=== PATIENT | male | born 1940 | race Caucasian/White ===

== ENCOUNTER 2018-08-17 07:10 | Inpatient (IN) | payer BC, MEDICARE ==
[~2018-08-17] VITALS: Ht 180.3 cm; Wt 94.8 kg
[~2018-08-17 07:10] MED LIST: ALLO100T PO; ALLO300T PO; ASPI-482 PO; CLON0.1T PO; ESCITALOPRAM OX10 MG PO; EZET10TA18 PO; FLUT1DIS3 IH; GLIM4TAB2 PO; GLYB2.5T2 PO; GLYB5TAB3 PO; HYDR-2758 PO; LANS15CA78 PO; LINA5TAB4 PO; LISI-334 PO; LISI10TA2 PO; LISI1TAB7 PO; METF500T16 PO; METO-239 PO; METO100T7 PO; METO200T46 PO; PIOG30TA41 PO; POLY17PO29 PO; RANI150T21 PO; SIMV10TA3 PO; SIMV20TA3 PO
--- NOTE | 2018-08-17 07:43 | EKG ---
[facility] [address] [place] [id number] Test Date: 2018-08-17 Test Time: 07:18:41 Pat Name: BRANDYN MORENO Department: Room: Gender: M Manager Medicare: : 1940 Requested By: MARCOS CHAVEZ Order Number: [id number] Reading MD: Kyle Gonzalez Measurements Intervals [place] Rate: 85 P: -15 FL: 158 QRS: 64 QRSD: 82 T: 67 QT: 376 QTc: 453 Interpretive Statements SINUS RHYTHM ATRIAL PREMATURE COMPLEX(ES) QRS(T) CONTOUR ABNORMALITY CONSIDER ANTEROLATERAL MYOCARDIAL DAMAGE POSSIBLY ABNORMAL ECG Electronically Signed On 08-17-2018 11:52:50 CDT by Kyle Gonzalez
[2018-08-17] MEDS ORDERED: ONDANSETRON PF 4 MG/2 ML VIAL. IV ONE ×2 (07:45→10:00)
[2018-08-17] MEDS ORDERED: IV NORMAL SALINE 1000ML BAG 1,000 ML IV ONE (07:45)
--- NOTE | 2018-08-17 07:58 | PHYS DOC ---
Past Medical History Past Medical History: Diabetes-Type II, High Cholesterol, Hypertension Past Surgical History: Cholecystectomy, Other Additional Past Surgical Histo: hemorrhoidectomy Additional Information: quit smoking 1997 Alcohol Use: Occasionally Additional Information: reports 1 beer daily Drug Use: Marijuana Adult General Chief Complaint Chief Complaint: ABDOMINAL PAIN HPI HPI Patient is a 78 year old male presenting with PAWEL a chief complaint nausea vomiting and diarrhea. Multiple episodes of each 10 or more he said the last couple episodes he noticed some brownish colored emesis he was worried about bleeding however the stool is also been brown there is no black stool there has been no blood by mouth or rectum no bright red blood. Patient has no fever no chest pain no shortness of breath has abdominal pain described as cramping more on the left worse with vomiting. No sick contacts he was hospitalized last month at antibiotics and elevated white count ultimately concluded to be dehydrated. No sick contacts at home with similar symptoms Y says the diarrhea is fairly chronic for him but it is worse over the last 24 hours. Review of Systems Review of Systems Constitutional: Denies fever or chills [] Eyes: Denies change in visual acuity, redness, or eye pain [] HENT: Denies nasal congestion or sore throat [] Respiratory: Denies cough or shortness of breath [] Cardiovascular: No additional information not addressed in HPI [] Musculoskeletal: Denies back pain or joint pain [] Integument: Denies rash or skin lesions [] Neurologic: Denies headache, focal weakness or sensory changes [] Endocrine: Denies polyuria or polydipsia [] All other systems were reviewed and found to be within normal limits, except as documented in this note. Current Medications Current Medications Current Medications Medications (Trade) Dose Ordered Sig/Tanya Start Time Stop Time Status Last Admin Dose Admin Ceftriaxone Sodium 50 ml @ 100 mls/hr 1X ONCE 08/17/18 08:30 08/17/18 08:59 DC 08/17/18 09:27 100 MLS/HR Metronidazole 100 ml @ 100 mls/hr 1X ONCE 08/17/18 08:30 08/17/18 09:29 DC 08/17/18 10:27 100 MLS/HR Ondansetron HCl (Zofran) 4 mg 1X ONCE 08/17/18 10:00 08/17/18 10:01 DC 08/17/18 10:27 4 MG Sodium Chloride 1,000 ml @ 1,000 mls/hr 1X ONCE 08/17/18 07:45 08/17/18 08:44 DC 08/17/18 07:46 1,000 MLS/HR Allergies Allergies Allergies Coded Allergies Type Severity Reaction Last Updated Verified morphine Adverse Reaction Intermediate 03/23/15 Yes Physical Exam Physical Exam Constitutional: Well developed, well nourished, no acute distress, non-toxic appearance. [] HENT: Normocephalic, atraumatic, bilateral external ears normal, oropharynx dry , no oral exudates, nose normal. [] Eyes: PERRLA, EOMI, conjunctiva normal, no discharge. [] Neck: Normal range of motion, no tenderness, supple, no stridor. [] Cardiovascular:Heart rate regular rhythm, no murmur [] Lungs & Thorax: Bilateral breath sounds clear to auscultation [] Abdomen: Bowel sounds normal, soft, left lower quadrant without rebound tenderness, no masses, no pulsatile masses. [] Skin: Warm, dry, no erythema, no rash. [] Back: No tenderness, no CVA tenderness. [] Extremities: No tenderness, no cyanosis, no clubbing, ROM intact, no edema. [] Neurologic: Alert and oriented X 3, normal motor function, normal sensory function, no focal deficits noted. [] Psychologic: Affect normal, judgement normal, mood normal. [] Current Patient Data Vital Signs Vital Signs Date Time Temp Pulse Resp B/P (MAP) Pulse Ox O2 Delivery O2 Flow Rate FiO2 08/17/18 09:52 92 16 170/74 (106) Room Air 08/17/18 09:26 97 08/17/18 07:21 97.4 97.4 Lab Values Laboratory Tests Test 08/17/18 07:40 08/17/18 07:50 08/17/18 09:02 White Blood Count 20.3 x10^3/uL (4.0-11.0) H Red Blood Count 4.29 x10^6/uL (4.30-5.70) L Hemoglobin 14.0 g/dL (13.0-17.5) Hematocrit 43.0 % (39.0-53.0) Mean Corpuscular Volume 100 fL (79-100) Mean Corpuscular Hemoglobin 33 pg (25-35) Mean Corpuscular Hemoglobin Concent 33 g/dL (31-37) Red Cell Distribution Width 14.5 % (11.5-14.5) Platelet Count 178 x10^3/uL (140-400) Neutrophils (%) (Auto) 95 % (31-73) H Lymphocytes (%) (Auto) 3 % (24-48) L Monocytes (%) (Auto) 2 % (0-9) Eosinophils (%) (Auto) 0 % (0-3) Basophils (%) (Auto) 0 % (0-3) Neutrophils # (Auto) 19.1 x10^3uL (1.8-7.7) H Lymphocytes # (Auto) 0.6 x10^3/uL (1.0-4.8) L Monocytes # (Auto) 0.5 x10^3/uL (0.0-1.1) Eosinophils # (Auto) 0.0 x10^3/uL (0.0-0.7) Basophils # (Auto) 0.0 x10^3/uL (0.0-0.2) Segmented Neutrophils % 87 % (35-66) H Band Neutrophils % 5 % (0-9) Lymphocytes % 4 % (24-48) L Atypical Lymphocytes % (Manual) 1 % (0-0) H Monocytes % 2 % (0-10) Metamyelocytes % 1 % (0-0) H Platelet Estimate Adequate (ADEQUATE) Sodium Level 137 mmol/L (136-145) Potassium Level 5.2 mmol/L (3.5-5.1) H Chloride Level 101 mmol/L (98-107) Carbon Dioxide Level 19 mmol/L (21-32) L Anion Gap 17 (6-14) H Blood Urea Nitrogen 54 mg/dL (8-26) H Creatinine 2.5 mg/dL (0.7-1.3) H Estimated GFR (Cockcroft-Gault) 25.1 BUN/Creatinine Ratio 22 (6-20) H Glucose Level 370 mg/dL (70-99) H Calcium Level 10.3 mg/dL (8.5-10.1) H Total Bilirubin 0.6 mg/dL (0.2-1.0) Aspartate Amino Transferase (AST) 27 U/L (15-37) Alanine Aminotransferase (ALT) 44 U/L (16-63) Alkaline Phosphatase 141 U/L (46-116) H Troponin I Quantitative < 0.017 ng/mL (0.000-0.055) Total Protein 7.7 g/dL (6.4-8.2) Albumin 4.2 g/dL (3.4-5.0) Albumin/Globulin Ratio 1.2 (1.0-1.7) Lipase 148 U/L (73-393) Stool Occult Blood Negative (NEG) Urine Collection Type Void Urine Color Yellow Urine Clarity Turbid Urine pH 5.0 Urine Specific [place] 1.025 Urine Protein 30 mg/dL (NEG-TRACE) Urine Glucose (UA) >=1000 mg/dL (NEG) Urine Ketones (Stick) Trace mg/dL (NEG) Urine Blood Negative (NEG) Urine Nitrite Negative (NEG) Urine Bilirubin Negative (NEG) Urine Urobilinogen Dipstick 0.2 mg/dL (0.2 mg/dL) Urine Leukocyte Esterase Trace (NEG) Urine RBC 0 /HPF (0-2) Urine WBC 5-10 /HPF (0-4) Urine Squamous Epithelial Cells Occ /LPF Urine Renal Epithelial Cells Occ /LPF Urine Bacteria 0 /HPF (0-FEW) Urine Hyaline Casts Few /HPF Urine Mucus Slight /LPF Laboratory Tests 08/17/18 07:40 Laboratory Tests 08/17/18 07:40 EKG EKG []EKG shows a sinus rhythm rate of [address] changes noted laterally no definite ischemia no STEMI QTC 453 interpreted by me the timing encounter Radiology/Procedures Radiology/Procedures [] Impressions: 1. Multiple sigmoid colon diverticulosis. 2. Nonspecific mild fluid distended small bowel loops. 3. Mild fat stranding identified about the bilateral kidneys, chronic probably medical renal disease. 4. Mild prominent bilateral adrenal glands similar to prior exam. Electronically signed by: Giuseppe Thurman MD (08/17/2018 10:28 AM) [id number] Course & Med Decision Making Course & Med Decision Making Pertinent Labs and Imaging studies reviewed. (See chart for details) []78-year-old male history of diabetes hypertension high cholesterol recent admission for [place] I with dehydration lactic acidosis thought due to metformin who is presenting with nausea vomiting and diarrhea for the last 1 day. Patient is overall well-appearing he does have mild to moderate abdominal tenderness. Plan to do a CT scan to rule out diverticulitis we'll hydrate the patient check lab work, try to get stool sample to rule out C. difficile given the recent hospitalization. noted wbc, covered ctx flagyl presumptively waiting for cdiff. noted renal failure, and mild hyperk treated with iv fluids. will admit ct scan neg acute, cdiff pending as well. h/h and hemoccult not c/w gi bleed. d/w riffel admit for renal failure, waiting for cdiff. Dragon Disclaimer Dragon Disclaimer This electronic medical record was generated, in whole or in part, using a voice recognition dictation system. Departure Departure Impression: Primary Impression: Nausea vomiting and diarrhea Additional Impressions: Renal failure (ARF), acute on chronic Hyperkalemia Disposition: ADMITTED INPATIENT Admitting Physician: Other Condition: STABLE Referrals: WAYNE FISH Jr, MD (PCP) Problem Qualifiers MARCOS CHAVEZ MD Aug 17, 2018 07:58
[2018-08-17 08:09] LABS: CALCIUM 10.3 mg/dL (8.5-10.1); CREATININE 2.5 mg/dL (0.7-1.3); GFR 25.1; POTASSIUM 5.2 mmol/L (3.5-5.1)
[2018-08-17 08:16] LABS: ALBUMIN 4.2 g/dL (3.4-5.0); ALBUMIN/GLOBULIN RATIO 1.2 (1.0-1.7); TOTAL BILIRUBIN 0.6 mg/dL (0.2-1.0); TOTAL PROTEIN 7.7 g/dL (6.4-8.2)
[2018-08-17 08:17] LABS: BASO % 0 % (0-3); EOS % 0 % (0-3); LYMPH # 0.6 x10^3/uL (1.0-4.8); LYMPH % 3 % (24-48); MEAN CORPUSCULAR HEMOGLOBIN 33 pg (25-35); MEAN CORPUSCULAR HGB CONC 33 g/dL (31-37); MEAN CORPUSCULAR VOLUME 100 fL (79-100); MONO # 0.5 x10^3/uL (0.0-1.1); MONO % 2 % (0-9); NEUT # 19.1 x10^3uL (1.8-7.7); NEUT % 95 % (31-73); PLATELET COUNT 178 x10^3/uL (140-400); RED BLOOD COUNT 4.29 x10^6/uL (4.30-5.70); RED CELL DISTRIBUTION WIDTH 14.5 % (11.5-14.5); WHITE BLOOD COUNT 20.3 x10^3/uL (4.0-11.0)
[2018-08-17 08:31] LABS: FECAL OB PT NEGATIVE (NEG)
[2018-08-17 09:19] LABS: BILIRUBIN,URINE NEGATIVE (NEG); CLARITY,URINE TURBID; COLOR,URINE YELLOW; NITRITE,URINE NEGATIVE (NEG); PROTEIN,URINE 30 mg/dL (NEG-TRACE); UROBILINOGEN,URINE 0.2 mg/dL (0.2 mg/dL)
[2018-08-17 09:27] LABS: HYALINE CASTS, URINE FEW /HPF; SQUAMOUS EPITHELIAL CELL,UR OCC /LPF
[2018-08-17 09:29] LABS: RBC,URINE 0 /HPF (0-2)
[2018-08-17 09:30] LABS: BACTERIA,URINE 0 /HPF (0-FEW)
--- NOTE | 2018-08-17 10:31 | RAD ---
Examination: CT abdomen pelvis without contrast HISTORY: History of left lower quadrant abdominal pain, diverticulitis, diarrhea COMPARISON: 02/16/2015 TECHNIQUE: Axial CT images of the abdomen pelvis were performed without contrast. Coronal and sagittal reformats are performed Exposure: One or more of the following individualized dose reduction techniques were utilized for this examination: 1. Automated exposure control 2. Adjustment of the mA and/or kV according to patient size 3. Use of iterative reconstruction technique FINDINGS: Multiple calcified granulomas identified in the bibasilar lungs. No evidence of free air identified in the abdomen. The visualized noncontrasted liver, pancreas grossly appears unremarkable. Calcified granulomas identified in the spleen. Minimal prominent appearing adrenal glands are unchanged. The stomach is mildly distended with fluid. Mildly fluid distended small bowel loops identified in the abdomen. The appendix is normal. Feces and gas noted in the colon. Multiple sigmoid colon diverticulosis. The urinary bladder is mildly distended. No evidence of intrarenal collecting system calculi or hydronephrosis. Mild fat stranding identified about the bilateral kidneys. There is thinning of bilateral renal cortices. Moderate to severe aortic atherosclerosis. IMPRESSION: 1. Multiple sigmoid colon diverticulosis. 2. Nonspecific mild fluid distended small bowel loops. 3. Mild fat stranding identified about the bilateral kidneys, chronic probably medical renal disease. 4. Mild prominent bilateral adrenal glands similar to prior exam. Electronically signed by: Giuseppe Thurman MD (08/17/2018 10:28 AM) [id number]
--- NOTE | 2018-08-17 10:35 | RAD ---
EXAM: Chest, single view. HISTORY: Cough and fever. COMPARISON: 07/08/2018 FINDINGS: A frontal view of the chest obtained. There is no infiltrate, pleural effusion or pneumothorax. There is a stable prominent cardiac silhouette. There is healed granulomatous disease. IMPRESSION: No acute pulmonary finding. Electronically signed by: Tarsha Eisenberg MD (08/17/2018 10:31 AM) [place] [id number]
[2018-08-17 10:52] LABS: % ATYL 1 % (0-0); % BANDS 5 % (0-9); % LYMPHS 4 % (24-48); % METAS 1 % (0-0); % MONOS 2 % (0-10); % SEGS 87 % (35-66); PLT ESTIMATE ADEQUATE (ADEQUATE)
[2018-08-17] MEDS: IV NORMAL SALINE 1000ML BAG 1,000 ML IV SCH ×2 (11:30→20:39)
[2018-08-17] MEDS ORDERED: ALLO100T PO (13:45)
[2018-08-17] MEDS ORDERED: METF500T16 PO (13:45)
[2018-08-17] MEDS ORDERED: LISI1TAB7 PO (13:45)
[2018-08-17] MEDS ORDERED: PIOG30TA41 PO (13:45)
[2018-08-17] MEDS ORDERED: LISI-334 PO (13:45)
[2018-08-17] MEDS ORDERED: GLIM1TAB2 PO (13:45)
[2018-08-17] MEDS ORDERED: GLYB5TAB3 PO (13:46)
[2018-08-17 14:01] VITALS: BP 161/80
--- NOTE | 2018-08-17 14:57 | PDOC1 ---
History and Physical Date of Admission Date of Admission DATE: 08/17/18 TIME: 14:57 Identification/Chief Complaint Chief Complaint Intractable nausea and vomiting Diarrhea ARF Source Source: Caregiver (Daughter), Chart review, Patient History of Present Illness History of Present Illness Patient is a 78 year old male w/ PMHx DM who is p/w nausea vomiting and diarrhea. Multiple episodes of each 10 or more he said the last couple episodes he noticed some brownish colored emesis he was worried about bleeding however the stool is also been brown there is no black stool there has been no blood by mouth or rectum no bright red blood. Patient has no fever no chest pain no shortness of breath has abdominal pain described as cramping more on the left worse with vomiting. No sick contacts he was hospitalized last month at antibiotics and elevated white count ultimately concluded to be dehydrated and should stop taking metformin. He has been taking his metformin at home. Noted in ED with WBC of 20K, had CT abdomen that was non-specific showing fluid in the bowels, no apparent inflammation. K was 5.2, given IVF for this and Cr up to 2.5. After nausea treatment he is asking for a diet. Past Medical History Cardiovascular: HTN, Hyperlipidemia Pulmonary: Asthma CENTRAL NERVOUS SYSTEM: TIA GI: Diverticulosis Heme/Onc: No pertinent hx Hepatobiliary: No pertinent hx Psych: No pertinent hx Musculoskeletal: Osteoarthritis Rheumatologic: Gout Infectious disease: No pertinent hx Renal/: No pertinent hx Endocrine: Diabetes Past Surgical History Past Surgical History: Cholecystectomy, Cataract Removal, Other Family History Family History: Diabetes, Hypertension Social History ALCOHOL: none Drugs: None Current Problem List Problem List Problems Medical Problems: (1) Nausea vomiting and diarrhea Status: Acute (2) Renal failure (ARF), acute on chronic Status: Acute Current Medications Current Medications Current Medications Ondansetron HCl (Zofran) 4 mg 1X ONCE IV Last administered on 08/17/18at 07:47 ; Start 08/17/18 at 07:45; Stop 08/17/18 at 07:46; Status DC Sodium Chloride 1,000 ml @ 1,000 mls/hr 1X ONCE IV Last administered on 08/17at 07:46; Start 08/17/18 at 07:45; Stop 08/17/18 at 08:44; Status DC Ceftriaxone Sodium 50 ml @ 100 mls/hr 1X ONCE IV Last administered on at 09:27; Start 08/17/18 at 08:30; Stop 08/17/18 at 08:59; Status DC Metronidazole 100 ml @ 100 mls/hr 1X ONCE IV Last administered on 08/17/18at 10:27; Start 08/17/18 at 08:30; Stop 08/17/18 at 09:29; Status DC Ondansetron HCl (Zofran) 4 mg 1X ONCE IV Last administered on 08/17/18at 10:27 ; Start 08/17/18 at 10:00; Stop 08/17/18 at 10:01; Status DC Sodium Chloride 1,000 ml @ 100 mls/hr Q10H IV Last administered on 08/17/18at 11:30; Start 08/17/18 at 10:39; Stop 08/18/18 at 10:38 Ringer's Solution 1,000 ml @ 100 mls/hr Q10H IV ; Start 08/17/18 at 14:46; Stop 08/18/18 at 00:45; Status UNV Ondansetron HCl (Zofran) 4 mg PRN Q6HRS PRN IV NAUSEA/VOMITING; Start at 15:00; Status UNV Oxycodone HCl (Roxicodone) 5 mg PRN Q3HRS PRN PO BREAKTHROUGH PAIN; Start at 15:00; Status UNV Acetaminophen (Tylenol) 650 mg PRN Q6HRS PRN PO Headaches, Temp > 101.5F; Start 08/17/18 at 15:00; Status UNV Heparin Sodium (Porcine) (Heparin Sodium) 5,000 unit Q8HRS SQ ; Start 08/17/18 at 22:00; Status UNV Insulin Glargine (Lantus) 8 units QHS SQ ; Start 08/17/18 at 21:00; Status UNV Insulin Human Lispro (HumaLOG) 0-7 UNITS TIDWMEALS SQ ; Start 08/17/18 at 17:00 ; Status UNV Dextrose (Dextrose 50%-Water Syringe) 12.5 gm PRN Q15MIN PRN IV SEE COMMENTS; Start 08/17/18 at 15:00; Status UNV Allopurinol (Zyloprim) 100 mg DAILY PO ; Start 08/18/18 at 09:00; Status UNV Non-Formulary Medication (Escitalopram Oxalate ) 1 tab DAILY PO ; Start at 09:00; Status UNV Non-Formulary Medication (Metoprolol Succinate (Metoprolol Succinate ( Xl ))) 1 tab DAILY PO ; Start 08/18/18 at 09:00; Status UNV Non-Formulary Medication (Simvastatin ) 1 tab QHS PO ; Start 08/17/18 at 21:00 ; Status UNV Active Scripts Active Reported Glyburide 5 Mg Tablet 1 Tab PO BID Metformin Hcl 500 Mg Tablet 500 Mg PO DAILY08 Allopurinol 100 Mg Tablet 1 Tab PO DAILY Lisinopril 20 Mg Tablet 1 Tab PO DAILY Lisinopril-Hctz 20-25 Mg Tab (Lisinopril/Hydrochlorothiazide) 1 Each Tablet 1 Tab PO DAILY Actos (Pioglitazone Hcl) 30 Mg Tablet 1 Tab PO DAILY Glimepiride 1 Mg Tablet 1 Tab PO DAILY Metoprolol Succinate ( Xl ) (Metoprolol Succinate) 200 Mg Tab.er.24h 1 Tab PO DAILY Escitalopram Oxalate 10 Mg Tablet 1 Tab PO DAILY Simvastatin 20 Mg Tablet 1 Tab PO QHS Allergies Allergies: Coded Allergies: morphine (Verified Adverse Reaction, Intermediate, 03/23/15) caused confusion/hallucinations after he was on it a few days ROS General: YES: Fatigue, Malaise; No: Chills, Night Sweats, Appetite, Other PSYCHOLOGICAL ROS: No: Anxiety, Behavioral Disorder, Concentration difficultie , Decreased libido, Depression, Disorientation, Hallucinations, Hostility, Irritablity, Memory difficulties, Mood Swings, Obsessive thoughts, Physical abuse, Sexual abuse, Sleep disturbances, Suicidal ideation, Other Eyes: No Blurry vision, No Decreased vision, No Double vision, No Dry eyes, No Excessive tearing, No Eye Pain, No Itchy Eyes, No Loss of vision, No Photophobia , No Scotomata, No Uses contacts, No Uses glasses, No Other HEENT: No: Heacaches, Visual Changes, Hearing change, Nasal congestion, Nasal discharge, Oral lesions, Sinus pain, Sore Throat, Epistaxis, Sneezing, Snoring, Tinnitus, Vertigo, Vocal changes, Other ALLERGY AND IMMUNOLOGY: No: Hives, Insect Bite Sensitivity, Itchy/Watery Eyes, Nasal Congestion, Post Nasal Drip, Seasonal Allergies, Other Hematological and Lymphatic: No: Bleeding Problems, Blood Clots, Blood Transfusions, Brusing, Night Sweats, Pallor, Swollen Lymph Nodes, Other ENDOCRINE: No: Breast Changes, Galactorrhea, Hair Pattern Changes, Hot Flashes , Malaise/lethargy, Mood Swings, Palpitations, Polydipsia/polyuria, Skin Changes , Temperature Intolerance, Unexpected Weight Changes, Other Breast: No New/Changing Breast Lumps, No Nipple changes, No Nipple discharge, No Other Respiratory: No: Cough, Hemoptysis, Orthopnea, Pleuritic Pain, Shortness of breath, SOB with excertion, Sputum Changes, Stridor, Tachypnea, Wheezing, Other Cardiovascular: No Chest Pain, No Palpitations, No Orthopnea, No Paroxysmal Noc. Dyspnea, No Edema, No Lt Headedness, No Other Gastrointestinal: Yes Nausea, Yes Vomiting, Yes Abdominal Pain, Yes Diarrhea Genitourinary: No Dysuria, No Frequency, No Incontinence, No Hematuria, No Retention, No Discharge, No Urgency, No Pain, No Flank Pain, No Other, No , No , No , No , No , No , No Musculoskeletal: Yes Muscular Weakness Neurological: No Behavorial Changes, No Bowel/Bladder ControlChng, No Confusion , No Dizziness, No Gait Disturbance, No Headaches, No Impaired Coord/balance, No Memory Loss, No Numbness/Tingling, No Seizures, No Speech Problems, No Tremors, No Visual Changes, No Weakness, No Other Skin: No Dry Skin, No Eczema, No Hair Changes, No Lumps, No Mole Changes, No Mottling, No Nail Changes, No Pruritus, No Rash, No Skin Lesion Changes, No Other, No Acne Physical Exam General: Alert, Oriented X3, Cooperative, No acute distress HEENT: Atraumatic, PERRLA, EOMI, Mucous membr. moist/pink Lungs: Clear to auscultation, Normal air movement Heart: S1S2, RRR, no murmurs Abdomen: Other (RUQ and LUQ tender hyperactive bowel sounds) Rectal Exam: not examined Extremities: No clubbing, No cyanosis, No edema, Normal pulses, No tenderness/ swelling Skin: No rashes, No breakdown, No significant lesion Neuro: Normal gait, Normal speech, Strength at 5/5 X4 ext, Normal tone, Sensation intact, Cranial nerves 3-12 NL, Reflexes 2+ Psych/Mental Status: Mental status NL, Mood NL Vitals Vitals Vital Signs Date Time Temp Pulse Resp B/P (MAP) Pulse Ox O2 Delivery O2 Flow Rate FiO2 08/17/18 14:01 98.3 102 22 161/80 (107) 96 Room Air 98.3 Labs Labs Laboratory Tests Test 08/17/18 07:40 08/17/18 07:50 08/17/18 09:02 White Blood Count 20.3 x10^3/uL (4.0-11.0) Red Blood Count 4.29 x10^6/uL (4.30-5.70) Hemoglobin 14.0 g/dL (13.0-17.5) Hematocrit 43.0 % (39.0-53.0) Mean Corpuscular Volume 100 fL (79-100) Mean Corpuscular Hemoglobin 33 pg (25-35) Mean Corpuscular Hemoglobin Concent 33 g/dL (31-37) Red Cell Distribution Width 14.5 % (11.5-14.5) Platelet Count 178 x10^3/uL (140-400) Neutrophils (%) (Auto) 95 % (31-73) Lymphocytes (%) (Auto) 3 % (24-48) Monocytes (%) (Auto) 2 % (0-9) Eosinophils (%) (Auto) 0 % (0-3) Basophils (%) (Auto) 0 % (0-3) Neutrophils # (Auto) 19.1 x10^3uL (1.8-7.7) Lymphocytes # (Auto) 0.6 x10^3/uL (1.0-4.8) Monocytes # (Auto) 0.5 x10^3/uL (0.0-1.1) Eosinophils # (Auto) 0.0 x10^3/uL (0.0-0.7) Basophils # (Auto) 0.0 x10^3/uL (0.0-0.2) Segmented Neutrophils % 87 % (35-66) Band Neutrophils % 5 % (0-9) Lymphocytes % 4 % (24-48) Atypical Lymphocytes % (Manual) 1 % (0-0) Monocytes % 2 % (0-10) Metamyelocytes % 1 % (0-0) Platelet Estimate Adequate (ADEQUATE) Sodium Level 137 mmol/L (136-145) Potassium Level 5.2 mmol/L (3.5-5.1) Chloride Level 101 mmol/L (98-107) Carbon Dioxide Level 19 mmol/L (21-32) Anion Gap 17 (6-14) Blood Urea Nitrogen 54 mg/dL (8-26) Creatinine 2.5 mg/dL (0.7-1.3) Estimated GFR (Cockcroft-Gault) 25.1 BUN/Creatinine Ratio 22 (6-20) Glucose Level 370 mg/dL (70-99) Calcium Level 10.3 mg/dL (8.5-10.1) Total Bilirubin 0.6 mg/dL (0.2-1.0) Aspartate Amino Transf (AST/SGOT) 27 U/L (15-37) Alanine Aminotransferase (ALT/SGPT) 44 U/L (16-63) Alkaline Phosphatase 141 U/L (46-116) Troponin I Quantitative < 0.017 ng/mL (0.000-0.055) Total Protein 7.7 g/dL (6.4-8.2) Albumin 4.2 g/dL (3.4-5.0) Albumin/Globulin Ratio 1.2 (1.0-1.7) Lipase 148 U/L (73-393) Stool Occult Blood Negative (NEG) Urine Collection Type Void Urine Color Yellow Urine Clarity Turbid Urine pH 5.0 Urine Specific [place] 1.025 Urine Protein 30 mg/dL (NEG-TRACE) Urine Glucose (UA) >=1000 mg/dL (NEG) Urine Ketones (Stick) Trace mg/dL (NEG) Urine Blood Negative (NEG) Urine Nitrite Negative (NEG) Urine Bilirubin Negative (NEG) Urine Urobilinogen Dipstick 0.2 mg/dL (0.2 mg/dL) Urine Leukocyte Esterase Trace (NEG) Urine RBC 0 /HPF (0-2) Urine WBC 5-10 /HPF (0-4) Urine Squamous Epithelial Cells Occ /LPF Urine Renal Epithelial Cells Occ /LPF Urine Bacteria 0 /HPF (0-FEW) Urine Hyaline Casts Few /HPF Urine Mucus Slight /LPF Laboratory Tests Test 08/17/18 07:40 08/17/18 07:50 08/17/18 09:02 White Blood Count 20.3 x10^3/uL (4.0-11.0) Red Blood Count 4.29 x10^6/uL (4.30-5.70) Hemoglobin 14.0 g/dL (13.0-17.5) Hematocrit 43.0 % (39.0-53.0) Mean Corpuscular Volume 100 fL (79-100) Mean Corpuscular Hemoglobin 33 pg (25-35) Mean Corpuscular Hemoglobin Concent 33 g/dL (31-37) Red Cell Distribution Width 14.5 % (11.5-14.5) Platelet Count 178 x10^3/uL (140-400) Neutrophils (%) (Auto) 95 % (31-73) Lymphocytes (%) (Auto) 3 % (24-48) Monocytes (%) (Auto) 2 % (0-9) Eosinophils (%) (Auto) 0 % (0-3) Basophils (%) (Auto) 0 % (0-3) Neutrophils # (Auto) 19.1 x10^3uL (1.8-7.7) Lymphocytes # (Auto) 0.6 x10^3/uL (1.0-4.8) Monocytes # (Auto) 0.5 x10^3/uL (0.0-1.1) Eosinophils # (Auto) 0.0 x10^3/uL (0.0-0.7) Basophils # (Auto) 0.0 x10^3/uL (0.0-0.2) Segmented Neutrophils % 87 % (35-66) Band Neutrophils % 5 % (0-9) Lymphocytes % 4 % (24-48) Atypical Lymphocytes % (Manual) 1 % (0-0) Monocytes % 2 % (0-10) Metamyelocytes % 1 % (0-0) Platelet Estimate Adequate (ADEQUATE) Sodium Level 137 mmol/L (136-145) Potassium Level 5.2 mmol/L (3.5-5.1) Chloride Level 101 mmol/L (98-107) Carbon Dioxide Level 19 mmol/L (21-32) Anion Gap 17 (6-14) Blood Urea Nitrogen 54 mg/dL (8-26) Creatinine 2.5 mg/dL (0.7-1.3) Estimated GFR (Cockcroft-Gault) 25.1 BUN/Creatinine Ratio 22 (6-20) Glucose Level 370 mg/dL (70-99) Calcium Level 10.3 mg/dL (8.5-10.1) Total Bilirubin 0.6 mg/dL (0.2-1.0) Aspartate Amino Transf (AST/SGOT) 27 U/L (15-37) Alanine Aminotransferase (ALT/SGPT) 44 U/L (16-63) Alkaline Phosphatase 141 U/L (46-116) Troponin I Quantitative < 0.017 ng/mL (0.000-0.055) Total Protein 7.7 g/dL (6.4-8.2) Albumin 4.2 g/dL (3.4-5.0) Albumin/Globulin Ratio 1.2 (1.0-1.7) Lipase 148 U/L (73-393) Stool Occult Blood Negative (NEG) Urine Collection Type Void Urine Color Yellow Urine Clarity Turbid Urine pH 5.0 Urine Specific [place] 1.025 Urine Protein 30 mg/dL (NEG-TRACE) Urine Glucose (UA) >=1000 mg/dL (NEG) Urine Ketones (Stick) Trace mg/dL (NEG) Urine Blood Negative (NEG) Urine Nitrite Negative (NEG) Urine Bilirubin Negative (NEG) Urine Urobilinogen Dipstick 0.2 mg/dL (0.2 mg/dL) Urine Leukocyte Esterase Trace (NEG) Urine RBC 0 /HPF (0-2) Urine WBC 5-10 /HPF (0-4) Urine Squamous Epithelial Cells Occ /LPF Urine Renal Epithelial Cells Occ /LPF Urine Bacteria 0 /HPF (0-FEW) Urine Hyaline Casts Few /HPF Urine Mucus Slight /LPF VTE Prophylaxis Ordered VTE Prophylaxis Devices: Yes VTE Pharmacological Prophylaxi: Yes Assessment/Plan Assessment/Plan A/P: Intractable nausea and vomiting - improved with nausea meds, no obstruction, can slowly [place] [id number] will empirically treat for C diff. Consult ID Sepsis - with WBC [id number] and HR >100bpm no fever at this point, cultures, empiric rocephin and flagyl as well as IVF given per sepsis protocol ARF - likely 2/2 GI losses and taking metformin - stop taking, IVF for now Hyperkalemia - will give IVF, no EKG changes. Will repeat in AM, if worsening with renal function will consider nephro consultation Wheezing - likely with h/o COPD - will start nebulizer treatments for him Diabetes - stop metformin, sliding scale, hold sulfonylurea for renal failure as well ADA diet - slowly advance Heparin SC Full Code Wards for likely c. difficile infection KAYLAH GAVIRIA MD Aug 17, 2018 14:57
[2018-08-17] MEDS ORDERED: ACETAMINOPHEN 325 MG TABLET. PO PRN (15:00)
[2018-08-17] MEDS ORDERED: LABETALOL 20 MG/4 ML DISP.SYRIN. IVP PRN (15:00)
[2018-08-17] MEDS ORDERED: DEXTROSE 50% 25 GM / 50ML DISP.SYRIN. IV PRN (15:00)
[2018-08-17] MEDS ORDERED: oxyCODONE IR 5 MG TABLET PO PRN (15:00)
[2018-08-17] MEDS ORDERED: ONDANSETRON PF 4 MG/2 ML VIAL. IV PRN (15:00)
[2018-08-17] MEDS: IPRATRPIUM/ALBUTEROL 0.5/2.5MG 3 ML NEBU. NEB SCH (16:00)
[2018-08-17] MEDS ORDERED: IV RINGERS,LACTATED 1000ML 1,000 ML IV SCH (16:00)
[2018-08-17] MEDS: INSULIN LISPRO 300 UNITS/3 ML INSULN.PEN. SQ SCH (17:00)
[2018-08-17] MEDS: METOPROLOL SUCC 24HR ER 100 MG TAB.ER.24H. PO SCH (18:02)
[2018-08-17] MEDS: ALLOPURINOL 100 MG TABLET. PO SCH (18:02)
[2018-08-17 19:00] VITALS: BP 159/78
[2018-08-17] MEDS ORDERED: INSULIN GLARGINE 300 UNITS/3 ML INSULN.PEN. SQ SCH (21:00)
[2018-08-17] MEDS: SIMVASTATIN 20 MG TABLET PO SCH (21:10)
[2018-08-17] MEDS: HEPARIN for SUB-Q USE 5,000 UNIT/ML VIAL. SQ SCH (21:26)
[2018-08-18 03:00] VITALS: BP 131/65
[2018-08-18 06:05] LABS: BASO % 0 % (0-3); EOS % 0 % (0-3); HEMATOCRIT 38.4 % (39.0-53.0); HEMOGLOBIN 12.7 g/dL (13.0-17.5); LYMPH # 1.1 x10^3/uL (1.0-4.8); LYMPH % 5 % (24-48); MEAN CORPUSCULAR HEMOGLOBIN 33 pg (25-35); MEAN CORPUSCULAR HGB CONC 33 g/dL (31-37); MEAN CORPUSCULAR VOLUME 101 fL (79-100); MONO # 1.1 x10^3/uL (0.0-1.1); MONO % 5 % (0-9); NEUT # 19.2 x10^3uL (1.8-7.7); NEUT % 90 % (31-73); PLATELET COUNT 161 x10^3/uL (140-400); RED BLOOD COUNT 3.82 x10^6/uL (4.30-5.70); RED CELL DISTRIBUTION WIDTH 14.1 % (11.5-14.5); WHITE BLOOD COUNT 21.4 x10^3/uL (4.0-11.0)
[2018-08-18 06:09] LABS: ALBUMIN 3.6 g/dL (3.4-5.0); CALCIUM 9.1 mg/dL (8.5-10.1); CREATININE 1.7 mg/dL (0.7-1.3); GFR 39.2; PHOSPHORUS 3.1 mg/dL (2.6-4.7); POTASSIUM 5.1 mmol/L (3.5-5.1)
[2018-08-18] MEDS: HEPARIN for SUB-Q USE 5,000 UNIT/ML VIAL. SQ SCH ×3 (06:39→21:30)
[2018-08-18] MEDS: IV NORMAL SALINE 1000ML BAG 1,000 ML IV SCH ×3 (06:41→17:02)
[2018-08-18 07:00] VITALS: BP 131/65
[2018-08-18] MEDS: IPRATRPIUM/ALBUTEROL 0.5/2.5MG 3 ML NEBU. NEB SCH ×5 (08:00→20:45)
[2018-08-18] MEDS ORDERED: ALBUTEROL SULFATE 2.5 MG/3 ML NEBU. NEB PRN (08:00)
--- NOTE | 2018-08-18 08:31 | PDOC ---
Infectious Disease Note Vital Sign Vital Signs Vital Signs Date Time Temp Pulse Resp B/P (MAP) Pulse Ox O2 Delivery O2 Flow Rate FiO2 08/18/18 08:07 97 Room Air 08/18/18 03:00 97.6 76 18 131/65 (87) 97.6 Labs Lab Laboratory Tests Test 08/17/18 09:02 08/17/18 17:43 08/17/18 21:16 08/18/18 05:15 Urine Collection Type Void Urine Color Yellow Urine Clarity Turbid Urine pH 5.0 Urine Specific [place] 1.025 Urine Protein 30 mg/dL (NEG-TRACE) Urine Glucose (UA) >=1000 mg/dL (NEG) Urine Ketones (Stick) Trace mg/dL (NEG) Urine Blood Negative (NEG) Urine Nitrite Negative (NEG) Urine Bilirubin Negative (NEG) Urine Urobilinogen Dipstick 0.2 mg/dL (0.2 mg/dL) Urine Leukocyte Esterase Trace (NEG) Urine RBC 0 /HPF (0-2) Urine WBC 5-10 /HPF (0-4) Urine Squamous Epithelial Cells Occ /LPF Urine Renal Epithelial Cells Occ /LPF Urine Bacteria 0 /HPF (0-FEW) Urine Hyaline Casts Few /HPF Urine Mucus Slight /LPF Glucose (Fingerstick) 308 mg/dL (70-99) 188 mg/dL (70-99) White Blood Count 21.4 x10^3/uL (4.0-11.0) Red Blood Count 3.82 x10^6/uL (4.30-5.70) Hemoglobin 12.7 g/dL (13.0-17.5) Hematocrit 38.4 % (39.0-53.0) Mean Corpuscular Volume 101 fL (79-100) Mean Corpuscular Hemoglobin 33 pg (25-35) Mean Corpuscular Hemoglobin Concent 33 g/dL (31-37) Red Cell Distribution Width 14.1 % (11.5-14.5) Platelet Count 161 x10^3/uL (140-400) Neutrophils (%) (Auto) 90 % (31-73) Lymphocytes (%) (Auto) 5 % (24-48) Monocytes (%) (Auto) 5 % (0-9) Eosinophils (%) (Auto) 0 % (0-3) Basophils (%) (Auto) 0 % (0-3) Neutrophils # (Auto) 19.2 x10^3uL (1.8-7.7) Lymphocytes # (Auto) 1.1 x10^3/uL (1.0-4.8) Monocytes # (Auto) 1.1 x10^3/uL (0.0-1.1) Eosinophils # (Auto) 0.0 x10^3/uL (0.0-0.7) Basophils # (Auto) 0.0 x10^3/uL (0.0-0.2) Sodium Level 138 mmol/L (136-145) Potassium Level 5.1 mmol/L (3.5-5.1) Chloride Level 105 mmol/L (98-107) Carbon Dioxide Level 22 mmol/L (21-32) Anion Gap 11 (6-14) Blood Urea Nitrogen 40 mg/dL (8-26) Creatinine 1.7 mg/dL (0.7-1.3) Estimated GFR (Cockcroft-Gault) 39.2 Glucose Level 200 mg/dL (70-99) Calcium Level 9.1 mg/dL (8.5-10.1) Phosphorus Level 3.1 mg/dL (2.6-4.7) Albumin 3.6 g/dL (3.4-5.0) Objective Assessment Hematemesis RLQ Abd pain Abnormal CT abd with distension Leukocytosis - has been on steroids for adrenals at last admit ZHENG on CKD Plan Plan of Care Change to Zosyn/Zyvox GI eval F/u labs and cults D/w Dr. Gibson Thank you # [phone] LINDY SOLIZ MD Aug 18, 2018 08:31
[2018-08-18] MEDS: PIPERACILLIN/TAZOBACTAM 3.375 GM in IV NORMAL SALINE 50ML 50 ML IV SCH ×4 (08:49→23:48)
[2018-08-18] MEDS: ALLOPURINOL 100 MG TABLET. PO SCH (08:52)
[2018-08-18] MEDS: METOPROLOL SUCC 24HR ER 100 MG TAB.ER.24H. PO SCH (08:52)
[2018-08-18] MEDS: CITALOPRAM 20 MG TABLET. PO SCH (08:52)
[2018-08-18] MEDS: INSULIN LISPRO 300 UNITS/3 ML INSULN.PEN. SQ SCH ×3 (09:00→17:27)
[2018-08-18 11:00] VITALS: BP 139/70
--- NOTE | 2018-08-18 11:02 | PDOC2 ---
GI CONSULT Reason For Consult: N/v, diarrhea, vomiting blood HPI: HPI: 78 y/o male admitted through ER yesterday w/ ZHENG. Not the best historian. Reports diarrhea and vomiting beginning the night before last, denies precipitating events. Describes watery brown stool and "a lot" of brown emesis which he call "really bloody." This actually seems to be a chronic issue. Reviewed chart - was in ER for same symptoms last month, admitted w/ ZHENG then as well, renal consult indicates he reported vomiting blood. Also c/o chest pain then, received PPI and GI cocktail (and also prednisone). WBC 21, Hgb was 14 (now 12.7), MCV 101, BUN was 54 (now 40), Cr 2.5 (now 1.7), hemoccult negative. CT noted diverticulosis, nonspecific mild fluid distended small bowel loops, mild fat stranding about bilateral kidneys, and stable mild prominent bilateral adrenal glands. Old records indicate EGD by Dr. Blackmon in 2014 w/ superficial duodenal ulcerations and gastric biopsies negative for H. pylori. At that time also had cholecystostomy tube w/ eventual cholecystectomy later. EGD and colonoscopy w/ Dr. Quiñones in 06/2018: normal upper and middle esophagus, LA Grade A reflux esophagitis (no Ch's), 2cm hiatal hernia, H. 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 He says he takes Zantac QD w/ good control of GERD. Denies dysphagia. Has mid/ lower middle abd discomfort - maybe from heaving. Denies constipation, melena, and hematochezia. Might have lose a couple pounds. Denies liver and pancreas history. Uses Aleve occasionally. Got prednisone last admission. H/o DM - says glucose is normally around 100 at home. Initially 370 here. A1c is pending. Per RN, no vomiting and had one stool this morning. Stool culture is in process and C Diff was cancelled. PMH: PMH: GI-[place] per HPI also HTN, ISSAC, HLD, CKD, DM, TIA, gout, OA cholecystectomy, cataract removal, hemorrhoidectomy FH: Family History: No pertinent hx (denies GI cancers), CAD Social History: Smoke: Quit ALCOHOL: occassional Drugs: Marijuana (+ in 2014) ROS: GEN: ?chills HEENT: Denies blurred vision, sore throat CV: Denies chest pain RESP: Denies shortness of air, cough GI: Per HPI : Denies hematuria, dysuria ENDO: ?weight loss NEURO: Denies confusion, dizziness MSK: Denies weakness, joint pain/swelling SKIN: Denies jaundice, pruritus Vitals: Vitals: Vital Signs Date Time Temp Pulse Resp B/P (MAP) Pulse Ox O2 Delivery O2 Flow Rate FiO2 08/18/18 08:52 76 131/65 08/18/18 08:07 97 Room Air 08/18/18 07:00 97.9 20 97.9 Labs: Labs: Laboratory Tests Test 08/17/18 17:43 08/17/18 21:16 08/18/18 05:15 08/18/18 08:37 Glucose (Fingerstick) 308 mg/dL (70-99) 188 mg/dL (70-99) 209 mg/dL (70-99) White Blood Count 21.4 x10^3/uL (4.0-11.0) Red Blood Count 3.82 x10^6/uL (4.30-5.70) Hemoglobin 12.7 g/dL (13.0-17.5) Hematocrit 38.4 % (39.0-53.0) Mean Corpuscular Volume 101 fL (79-100) Mean Corpuscular Hemoglobin 33 pg (25-35) Mean Corpuscular Hemoglobin Concent 33 g/dL (31-37) Red Cell Distribution Width 14.1 % (11.5-14.5) Platelet Count 161 x10^3/uL (140-400) Neutrophils (%) (Auto) 90 % (31-73) Lymphocytes (%) (Auto) 5 % (24-48) Monocytes (%) (Auto) 5 % (0-9) Eosinophils (%) (Auto) 0 % (0-3) Basophils (%) (Auto) 0 % (0-3) Neutrophils # (Auto) 19.2 x10^3uL (1.8-7.7) Lymphocytes # (Auto) 1.1 x10^3/uL (1.0-4.8) Monocytes # (Auto) 1.1 x10^3/uL (0.0-1.1) Eosinophils # (Auto) 0.0 x10^3/uL (0.0-0.7) Basophils # (Auto) 0.0 x10^3/uL (0.0-0.2) Sodium Level 138 mmol/L (136-145) Potassium Level 5.1 mmol/L (3.5-5.1) Chloride Level 105 mmol/L (98-107) Carbon Dioxide Level 22 mmol/L (21-32) Anion Gap 11 (6-14) Blood Urea Nitrogen 40 mg/dL (8-26) Creatinine 1.7 mg/dL (0.7-1.3) Estimated GFR (Cockcroft-Gault) 39.2 Glucose Level 200 mg/dL (70-99) Calcium Level 9.1 mg/dL (8.5-10.1) Phosphorus Level 3.1 mg/dL (2.6-4.7) Albumin 3.6 g/dL (3.4-5.0) Allergies: Coded Allergies: morphine (Verified Adverse Reaction, Intermediate, 03/23/15) caused confusion/hallucinations after he was on it a few days Medications: Current Medications Medications (Trade) Dose Ordered Sig/Tanya Route PRN Reason Start Time Stop Time Status Last Admin Dose Admin Ondansetron HCl (Zofran) 4 mg PRN Q6HRS PRN IV NAUSEA/VOMITING 08/17/18 15:00 08/18/18 08:52 Oxycodone HCl (Roxicodone) 5 mg PRN Q3HRS PRN PO BREAKTHROUGH PAIN 08/17/18 15:00 08/18/18 03:06 Heparin Sodium (Porcine) (Heparin Sodium) 5,000 unit Q8HRS SQ 08/17/18 22:00 08/18/18 06:39 Insulin Glargine (Lantus) 8 units QHS SQ 08/17/18 21:00 08/17/18 21:27 Insulin Human Lispro (HumaLOG) 0-7 UNITS TIDWMEALS SQ 08/17/18 17:00 08/18/18 09:00 Allopurinol (Zyloprim) 100 mg DAILY PO 08/17/18 16:00 08/18/18 08:52 Citalopram Hydrobromide (CeleXA) 20 mg DAILY PO 08/18/18 09:00 08/18/18 08:52 Metoprolol Succinate (Toprol Xl) 200 mg DAILY PO 08/17/18 16:00 08/18/18 08:52 Simvastatin (Zocor) 20 mg HS PO 08/17/18 21:00 08/17/18 21:10 Albuterol/ Ipratropium (Duoneb) 3 ml RTQID NEB 08/17/18 16:00 08/18/18 08:06 Metronidazole 100 ml @ 100 mls/hr Q8HRS IV 08/17/18 22:00 08/18/18 08:22 DC 08/18/18 06:32 Piperacillin Sod/ Tazobactam Sod 3.375 gm/Sodium Chloride 50 ml @ 100 mls/hr Q6HRS IV 08/18/18 08:30 08/18/18 08:49 Linezolid/Dextrose 300 ml @ 300 mls/hr Q12HR IV 08/18/18 09:00 08/18/18 09:58 Imaging: Imaging: CXR IMPRESSION: No acute pulmonary finding. CT A/P w/o contrast FINDINGS: Multiple calcified granulomas identified in the bibasilar lungs. No evidence of free air identified in the abdomen. The visualized noncontrasted liver, pancreas grossly appears unremarkable. Calcified granulomas identified in the spleen. Minimal prominent appearing adrenal glands are unchanged. The stomach is mildly distended with fluid. Mildly fluid distended small bowel loops identified in the abdomen. The appendix is normal. Feces and gas noted in the colon. Multiple sigmoid colon diverticulosis. The urinary bladder is mildly distended. No evidence of intrarenal collecting system calculi or hydronephrosis. Mild fat stranding identified about the bilateral kidneys. There is thinning of bilateral renal cortices. Moderate to severe aortic atherosclerosis. IMPRESSION: 1. Multiple sigmoid colon diverticulosis. 2. Nonspecific mild fluid distended small bowel loops. 3. Mild fat stranding identified about the bilateral kidneys, chronic probably medical renal disease. 4. Mild prominent bilateral adrenal glands similar to prior exam. PE: GEN: NAD HEENT: Atraumatic, PERRL LUNGS: CTAB HEART: RRR ABD: NABS, soft - tender to very light palpation periumbilical and below EXTREMITY: No edema SKIN: No rashes, no jaundice NEURO/PSYCH: A & O 3 A/P: A/P: Recurrent n/v, abd pain, diarrhea Leukocytosis, macrocytic anemia (fecal occult neg), ZHENG GERD - on H2 bright at home, EGD 06/2018 CRC screen, h/o adenomatous polyps - UTD Diverticulosis w/ narrowing and sigmoid stricture per recent colonoscopy S/p cholecystectomy DM - suspect not well controlled -- Vomiting and diarrhea improved. Seems has chronic issues but suddenly worse a couple days ago. He describes brown emesis - denies red or black blood. H/o GERD - start PPI. ?gastroparesis ?drinks more than occasionally Await stool studies and A1c. Reviewed w/ Dr. Quiñones - check GES, consider EGD later on if needed. ARIE WEST Aug 18, 2018 11:02
--- NOTE | 2018-08-18 11:20 | PDOC ---
PROGRESS NOTES Chief Complaint Chief Complaint Intractable nausea and vomiting ,gastroenteritis Diarrhea , need to rule out cdiff Sepsis , could 2/2 gastroenteritis ARF - likely 2/2 GI losses, vasomotor Hyperkalemia COPD Diabetes HTN plan: fu with id, change abx to zosyn and zyvox cont ivf clear liquid diet for now increase lantus to 10u qhs, cont ssi hold po dm2 meds, hold ACEi dvt, gi ppx duoneb, albuterol prn check hb a1c talked to ID, get GI consult History of Present Illness History of Present Illness ROS: no fever, chills, or chest pain some cough and sob has N/V and diarrhea for 2-3 weeks. possible vomiting blood? WBC high 21 Vitals Vitals Vital Signs Date Time Temp Pulse Resp B/P (MAP) Pulse Ox O2 Delivery O2 Flow Rate FiO2 08/18/18 08:52 76 131/65 08/18/18 08:07 97 Room Air 08/18/18 07:00 97.9 20 97.9 Physical Exam General: Alert, Oriented X3, Cooperative, No acute distress Heart: Regular rate, Normal S1, Normal S2 Lungs: Other (bl coarse bs) Abdomen: Other (middle abd moderaet tenderness, with mild guarding, hyperactive bowel sounds) Extremities: No clubbing, No cyanosis, No edema, Normal pulses, No tenderness/ swelling Skin: No rashes, No breakdown, No significant lesion Labs LABS Laboratory Tests Test 08/17/18 17:43 08/17/18 21:16 08/18/18 05:15 08/18/18 08:37 Glucose (Fingerstick) 308 mg/dL (70-99) 188 mg/dL (70-99) 209 mg/dL (70-99) White Blood Count 21.4 x10^3/uL (4.0-11.0) Red Blood Count 3.82 x10^6/uL (4.30-5.70) Hemoglobin 12.7 g/dL (13.0-17.5) Hematocrit 38.4 % (39.0-53.0) Mean Corpuscular Volume 101 fL (79-100) Mean Corpuscular Hemoglobin 33 pg (25-35) Mean Corpuscular Hemoglobin Concent 33 g/dL (31-37) Red Cell Distribution Width 14.1 % (11.5-14.5) Platelet Count 161 x10^3/uL (140-400) Neutrophils (%) (Auto) 90 % (31-73) Lymphocytes (%) (Auto) 5 % (24-48) Monocytes (%) (Auto) 5 % (0-9) Eosinophils (%) (Auto) 0 % (0-3) Basophils (%) (Auto) 0 % (0-3) Neutrophils # (Auto) 19.2 x10^3uL (1.8-7.7) Lymphocytes # (Auto) 1.1 x10^3/uL (1.0-4.8) Monocytes # (Auto) 1.1 x10^3/uL (0.0-1.1) Eosinophils # (Auto) 0.0 x10^3/uL (0.0-0.7) Basophils # (Auto) 0.0 x10^3/uL (0.0-0.2) Sodium Level 138 mmol/L (136-145) Potassium Level 5.1 mmol/L (3.5-5.1) Chloride Level 105 mmol/L (98-107) Carbon Dioxide Level 22 mmol/L (21-32) Anion Gap 11 (6-14) Blood Urea Nitrogen 40 mg/dL (8-26) Creatinine 1.7 mg/dL (0.7-1.3) Estimated GFR (Cockcroft-Gault) 39.2 Glucose Level 200 mg/dL (70-99) Calcium Level 9.1 mg/dL (8.5-10.1) Phosphorus Level 3.1 mg/dL (2.6-4.7) Albumin 3.6 g/dL (3.4-5.0) Assessment and Plan Assessmemt and Plan Problems Medical Problems: (1) Nausea vomiting and diarrhea Status: Acute (2) Renal failure (ARF), acute on chronic Status: Acute Comment Review of Relevant I have reviewed the following items citlalli (where applicable) has been applied. Labs Laboratory Tests Test 08/17/18 07:40 08/17/18 07:50 08/17/18 09:02 08/17/18 17:43 White Blood Count 20.3 x10^3/uL (4.0-11.0) Red Blood Count 4.29 x10^6/uL (4.30-5.70) Hemoglobin 14.0 g/dL (13.0-17.5) Hematocrit 43.0 % (39.0-53.0) Mean Corpuscular Volume 100 fL (79-100) Mean Corpuscular Hemoglobin 33 pg (25-35) Mean Corpuscular Hemoglobin Concent 33 g/dL (31-37) Red Cell Distribution Width 14.5 % (11.5-14.5) Platelet Count 178 x10^3/uL (140-400) Neutrophils (%) (Auto) 95 % (31-73) Lymphocytes (%) (Auto) 3 % (24-48) Monocytes (%) (Auto) 2 % (0-9) Eosinophils (%) (Auto) 0 % (0-3) Basophils (%) (Auto) 0 % (0-3) Neutrophils # (Auto) 19.1 x10^3uL (1.8-7.7) Lymphocytes # (Auto) 0.6 x10^3/uL (1.0-4.8) Monocytes # (Auto) 0.5 x10^3/uL (0.0-1.1) Eosinophils # (Auto) 0.0 x10^3/uL (0.0-0.7) Basophils # (Auto) 0.0 x10^3/uL (0.0-0.2) Segmented Neutrophils % 87 % (35-66) Band Neutrophils % 5 % (0-9) Lymphocytes % 4 % (24-48) Atypical Lymphocytes % (Manual) 1 % (0-0) Monocytes % 2 % (0-10) Metamyelocytes % 1 % (0-0) Platelet Estimate Adequate (ADEQUATE) Sodium Level 137 mmol/L (136-145) Potassium Level 5.2 mmol/L (3.5-5.1) Chloride Level 101 mmol/L (98-107) Carbon Dioxide Level 19 mmol/L (21-32) Anion Gap 17 (6-14) Blood Urea Nitrogen 54 mg/dL (8-26) Creatinine 2.5 mg/dL (0.7-1.3) Estimated GFR (Cockcroft-Gault) 25.1 BUN/Creatinine Ratio 22 (6-20) Glucose Level 370 mg/dL (70-99) Calcium Level 10.3 mg/dL (8.5-10.1) Total Bilirubin 0.6 mg/dL (0.2-1.0) Aspartate Amino Transf (AST/SGOT) 27 U/L (15-37) Alanine Aminotransferase (ALT/SGPT) 44 U/L (16-63) Alkaline Phosphatase 141 U/L (46-116) Troponin I Quantitative < 0.017 ng/mL (0.000-0.055) Total Protein 7.7 g/dL (6.4-8.2) Albumin 4.2 g/dL (3.4-5.0) Albumin/Globulin Ratio 1.2 (1.0-1.7) Lipase 148 U/L (73-393) Stool Occult Blood Negative (NEG) Urine Collection Type Void Urine Color Yellow Urine Clarity Turbid Urine pH 5.0 Urine Specific [place] 1.025 Urine Protein 30 mg/dL (NEG-TRACE) Urine Glucose (UA) >=1000 mg/dL (NEG) Urine Ketones (Stick) Trace mg/dL (NEG) Urine Blood Negative (NEG) Urine Nitrite Negative (NEG) Urine Bilirubin Negative (NEG) Urine Urobilinogen Dipstick 0.2 mg/dL (0.2 mg/dL) Urine Leukocyte Esterase Trace (NEG) Urine RBC 0 /HPF (0-2) Urine WBC 5-10 /HPF (0-4) Urine Squamous Epithelial Cells Occ /LPF Urine Renal Epithelial Cells Occ /LPF Urine Bacteria 0 /HPF (0-FEW) Urine Hyaline Casts Few /HPF Urine Mucus Slight /LPF Glucose (Fingerstick) 308 mg/dL (70-99) Test 08/17/18 21:16 08/18/18 05:15 08/18/18 08:37 Glucose (Fingerstick) 188 mg/dL (70-99) 209 mg/dL (70-99) White Blood Count 21.4 x10^3/uL (4.0-11.0) Red Blood Count 3.82 x10^6/uL (4.30-5.70) Hemoglobin 12.7 g/dL (13.0-17.5) Hematocrit 38.4 % (39.0-53.0) Mean Corpuscular Volume 101 fL (79-100) Mean Corpuscular Hemoglobin 33 pg (25-35) Mean Corpuscular Hemoglobin Concent 33 g/dL (31-37) Red Cell Distribution Width 14.1 % (11.5-14.5) Platelet Count 161 x10^3/uL (140-400) Neutrophils (%) (Auto) 90 % (31-73) Lymphocytes (%) (Auto) 5 % (24-48) Monocytes (%) (Auto) 5 % (0-9) Eosinophils (%) (Auto) 0 % (0-3) Basophils (%) (Auto) 0 % (0-3) Neutrophils # (Auto) 19.2 x10^3uL (1.8-7.7) Lymphocytes # (Auto) 1.1 x10^3/uL (1.0-4.8) Monocytes # (Auto) 1.1 x10^3/uL (0.0-1.1) Eosinophils # (Auto) 0.0 x10^3/uL (0.0-0.7) Basophils # (Auto) 0.0 x10^3/uL (0.0-0.2) Sodium Level 138 mmol/L (136-145) Potassium Level 5.1 mmol/L (3.5-5.1) Chloride Level 105 mmol/L (98-107) Carbon Dioxide Level 22 mmol/L (21-32) Anion Gap 11 (6-14) Blood Urea Nitrogen 40 mg/dL (8-26) Creatinine 1.7 mg/dL (0.7-1.3) Estimated GFR (Cockcroft-Gault) 39.2 Glucose Level 200 mg/dL (70-99) Calcium Level 9.1 mg/dL (8.5-10.1) Phosphorus Level 3.1 mg/dL (2.6-4.7) Albumin 3.6 g/dL (3.4-5.0) Laboratory Tests Test 08/17/18 17:43 08/17/18 21:16 08/18/18 05:15 08/18/18 08:37 Glucose (Fingerstick) 308 mg/dL (70-99) 188 mg/dL (70-99) 209 mg/dL (70-99) White Blood Count 21.4 x10^3/uL (4.0-11.0) Red Blood Count 3.82 x10^6/uL (4.30-5.70) Hemoglobin 12.7 g/dL (13.0-17.5) Hematocrit 38.4 % (39.0-53.0) Mean Corpuscular Volume 101 fL (79-100) Mean Corpuscular Hemoglobin 33 pg (25-35) Mean Corpuscular Hemoglobin Concent 33 g/dL (31-37) Red Cell Distribution Width 14.1 % (11.5-14.5) Platelet Count 161 x10^3/uL (140-400) Neutrophils (%) (Auto) 90 % (31-73) Lymphocytes (%) (Auto) 5 % (24-48) Monocytes (%) (Auto) 5 % (0-9) Eosinophils (%) (Auto) 0 % (0-3) Basophils (%) (Auto) 0 % (0-3) Neutrophils # (Auto) 19.2 x10^3uL (1.8-7.7) Lymphocytes # (Auto) 1.1 x10^3/uL (1.0-4.8) Monocytes # (Auto) 1.1 x10^3/uL (0.0-1.1) Eosinophils # (Auto) 0.0 x10^3/uL (0.0-0.7) Basophils # (Auto) 0.0 x10^3/uL (0.0-0.2) Sodium Level 138 mmol/L (136-145) Potassium Level 5.1 mmol/L (3.5-5.1) Chloride Level 105 mmol/L (98-107) Carbon Dioxide Level 22 mmol/L (21-32) Anion Gap 11 (6-14) Blood Urea Nitrogen 40 mg/dL (8-26) Creatinine 1.7 mg/dL (0.7-1.3) Estimated GFR (Cockcroft-Gault) 39.2 Glucose Level 200 mg/dL (70-99) Calcium Level 9.1 mg/dL (8.5-10.1) Phosphorus Level 3.1 mg/dL (2.6-4.7) Albumin 3.6 g/dL (3.4-5.0) Medications Current Medications Ondansetron HCl (Zofran) 4 mg 1X ONCE IV Last administered on 08/17/18at 07:47 ; Start 08/17/18 at 07:45; Stop 08/17/18 at 07:46; Status DC Sodium Chloride 1,000 ml @ 1,000 mls/hr 1X ONCE IV Last administered on 08/17at 07:46; Start 08/17/18 at 07:45; Stop 08/17/18 at 08:44; Status DC Ceftriaxone Sodium 50 ml @ 100 mls/hr 1X ONCE IV Last administered on at 09:27; Start 08/17/18 at 08:30; Stop 08/17/18 at 08:59; Status DC Metronidazole 100 ml @ 100 mls/hr 1X ONCE IV Last administered on 08/17/18at 10:27; Start 08/17/18 at 08:30; Stop 08/17/18 at 09:29; Status DC Ondansetron HCl (Zofran) 4 mg 1X ONCE IV Last administered on 08/17/18at 10:27 ; Start 08/17/18 at 10:00; Stop 08/17/18 at 10:01; Status DC Sodium Chloride 1,000 ml @ 100 mls/hr Q10H IV Last administered on 08/18/18at 06:41; Start 08/17/18 at 10:39; Stop 08/18/18 at 10:38; Status DC Ringer's Solution 1,000 ml @ 100 mls/hr Q10H IV ; Start 08/17/18 at 16:00; Stop 08/18/18 at 01:59; Status DC Ondansetron HCl (Zofran) 4 mg PRN Q6HRS PRN IV NAUSEA/VOMITING Last administered on 08/18/18at 08:52; Start 08/17/18 at 15:00 Oxycodone HCl (Roxicodone) 5 mg PRN Q3HRS PRN PO BREAKTHROUGH PAIN Last administered on 08/18/18at 03:06; Start 08/17/18 at 15:00 Acetaminophen (Tylenol) 650 mg PRN Q6HRS PRN PO Headaches, Temp > 101.5F; Start 08/17/18 at 15:00 Heparin Sodium (Porcine) (Heparin Sodium) 5,000 unit Q8HRS SQ Last administered on 08/18/18at 06:39; Start 08/17/18 at 22:00 Insulin Glargine (Lantus) 8 units QHS SQ Last administered on 08/17/18at 21:27 ; Start 08/17/18 at 21:00 Insulin Human Lispro (HumaLOG) 0-7 UNITS TIDWMEALS SQ Last administered on at 09:00; Start 08/17/18 at 17:00 Dextrose (Dextrose 50%-Water Syringe) 12.5 gm PRN Q15MIN PRN IV SEE COMMENTS; Start 08/17/18 at 15:00 Allopurinol (Zyloprim) 100 mg DAILY PO Last administered on 08/18/18at 08:52; Start 08/17/18 at 16:00 Citalopram Hydrobromide (CeleXA) 20 mg DAILY PO Last administered on at 08:52; Start 08/18/18 at 09:00 Metoprolol Succinate (Toprol Xl) 200 mg DAILY PO Last administered on at 08:52; Start 08/17/18 at 16:00 Simvastatin (Zocor) 20 mg HS PO Last administered on 08/17/18at 21:10; Start 08/17/18 at 21:00 Labetalol HCl (Normodyne Iv Push) 10 mg PRN Q4HRS PRN IVP HYPERTENSION, SEE COMMENTS; Start 08/17/18 at 15:00 Albuterol/ Ipratropium (Duoneb) 3 ml RTQID NEB Last administered on 08/18/18at 08:06; Start 08/17/18 at 16:00 Metronidazole 100 ml @ 100 mls/hr Q8HRS IV Last administered on 08/18/18at 06: 32; Start 08/17/18 at 22:00; Stop 08/18/18 at 08:22; Status DC Albuterol Sulfate (Ventolin Neb Soln) 2.5 mg PRN Q4HRS PRN NEB SHORTNESS OF BREATH; Start 08/18/18 at 08:00 Sodium Chloride 1,000 ml @ 100 mls/hr Q10H IV ; Start 08/18/18 at 08:00 Piperacillin Sod/ Tazobactam Sod 3.375 gm/Sodium Chloride 50 ml @ 100 mls/hr Q6HRS IV Last administered on 08/18/18at 08:49; Start 08/18/18 at 08:30 Linezolid/Dextrose 300 ml @ 300 mls/hr Q12HR IV Last administered on at 09:58; Start 10/17/18 at 09:00 Active Scripts Active Reported Glyburide 5 Mg Tablet 1 Tab PO BID Metformin Hcl 500 Mg Tablet 500 Mg PO DAILY08 Allopurinol 100 Mg Tablet 1 Tab PO DAILY Lisinopril 20 Mg Tablet 1 Tab PO DAILY Lisinopril-Hctz 20-25 Mg Tab (Lisinopril/Hydrochlorothiazide) 1 Each Tablet 1 Tab PO DAILY Actos (Pioglitazone Hcl) 30 Mg Tablet 1 Tab PO DAILY Glimepiride 1 Mg Tablet 1 Tab PO DAILY Metoprolol Succinate ( Xl ) (Metoprolol Succinate) 200 Mg Tab.er.24h 1 Tab PO DAILY Escitalopram Oxalate 10 Mg Tablet 1 Tab PO DAILY Simvastatin 20 Mg Tablet 1 Tab PO QHS Vitals/I & O Vital Sign - Last 24 Hours 08/17/18 08/17/18 08/17/18 08/17/18 14:00 14:01 18:02 19:00 Temp 98.3 97.8 98.3 97.8 Pulse 102 102 75 Resp 22 18 B/P (MAP) 161/80 (107) 161/80 159/78 (105) Pulse Ox 96 95 O2 Delivery Room Air Room Air 08/17/18 08/17/18 08/18/18 08/18/18 20:00 20:37 03:00 03:06 Temp 97.6 97.6 Pulse 76 Resp 18 B/P (MAP) 131/65 (87) Pulse Ox 98 94 O2 Delivery Room Air Room Air Room Air 08/18/18 08/18/18 08/18/18 08/18/18 04:06 07:00 08:07 08:52 Temp 97.9 97.9 Pulse 67 76 Resp 20 B/P (MAP) 131/65 (87) 131/65 Pulse Ox 97 97 O2 Delivery Room Air Room Air Room Air Intake and Output 08/17/18 08/17/18 08/18/18 15:00 23:00 07:00 Intake Total 1050 ml 460 ml Output Total 40 ml Balance 1010 ml 460 ml NANO SAEZ MD Aug 18, 2018 11:20
[2018-08-18] MEDS: PANTOPRAZOLE 40 MG TABLET.DR. PO SCH (13:04)
[2018-08-18 17:08] LABS: BARBITURATES NEG (NEG); BENZODIAZEPINES NEG (NEG); CANNABINOIDS NEG (NEG); COCAINE NEG (NEG); METHADONE NEG (NEG); OPIATES NEG (NEG); PHENCYCLIDINE NEG (NEG)
[2018-08-18 17:09] LABS: AMPHETAMINE/METHAMPHETAMINE NEG (NEG)
--- NOTE | 2018-08-18 18:56 | CONS ---
DATE OF CONSULTATION: 08/18/2018 LOCATION: The patient's room 536. REQUESTING PHYSICIAN: Dr. De La O. REASON FOR CONSULTATION: Leukocytosis. HISTORY OF PRESENT ILLNESS: The patient is a 78-year-old gentleman with longstanding history of diabetes, who had an admission roughly 3-1/2 years ago secondary to cholecystitis. He states approximately 3 weeks ago, he began to have some abdominal pain. He denies any abnormal food that he can remember. Denies any ill contacts, but he began to have some nausea, some vomiting, some diarrhea. Denies any blood in his stool. Denies taking any different medications for the nausea, vomiting or diarrhea, but presented to [facility] secondary to vomiting blood. Denies any fevers or chills, but he does feel cold at times. He has no gross headache. He has a chronic cough and some chronic aches. He has no rash. No problems passing his urine. He has been afebrile, but on arrival, white blood cell count was 20.3 with 87% segs. Creatinine was increased to a 2.5. Urinalysis was without bacteria. Leukocyte esterase was trace and nitrite was negative. He underwent a chest x-ray, which showed no acute pulmonary findings. CT scan of the abdomen and pelvis was performed, had nonspecific mild fluid; distended small bowel loops; diverticulosis; mild fat stranding identified, bilateral kidneys, chronic; probable medical renal disease; mild prominent bilateral adrenal gland similar to prior exam. He was given a dose of Rocephin and placed on Flagyl as well. Repeat white count this morning is 21.4. He is lying in bed, states he feels roughly about the same. Of note, he was recently discharged for a diagnosis of gastroenteritis in July. PAST MEDICAL HISTORY: Positive for hypertension, hyperlipidemia, asthma, TIA, diverticulosis, gout, diabetes, cholecystitis, gastroenteritis. He has chronic kidney disease. PAST SURGICAL HISTORY: Positive for cholecystectomy, cataract extraction, hemorrhoidectomy. Did initially have a cholecystostomy tube. REVIEW OF SYSTEMS: Otherwise negative. ALLERGIES: No known drug allergies. SOCIAL HISTORY: Quit smoking, no alcohol. Lives with family. FAMILY HISTORY: Noncontributory. CURRENT MEDICATIONS: Again, he received a dose of Rocephin, is on metronidazole, currently. Albuterol, allopurinol, Celexa, heparin, insulin, metoprolol, Zofran, oxycodone, Zocor. PHYSICAL EXAMINATION: VITAL SIGNS: He is afebrile, temperature 97.6, pulse 76, respiration rate 18, blood pressure 131/65, satting 97% on room air. CONSTITUTIONAL: He is alert, cooperative. He is in no acute distress. HEENT: Pupils are status post cataract. Normal conjunctivae. Oral cavity, pharynx is dry, clear. NECK: Supple, no JVD. LUNGS: Clear, have a mild rhonchi on the right. HEART: S1, S2. ABDOMEN: Soft, nondistended. Decreased bowel sounds. He has some tenderness, mild guarding in the right lower extremity. No gross rebound. EXTREMITIES: No clubbing, cyanosis or gross edema. SKIN: Warm to touch without signs of rash. NEUROLOGIC: He is nonfocal. Affect appropriate. LABORATORY VALUES: White count today 21.4, was 20.3 on arrival, hemoglobin 12.7, platelets of 161, neutrophils of 90, lymphs are 5. Glucose of 200. Creatinine 1.7, down from 2.5. AST is 27, ALT was 44. Lipase was 148. Alkaline phosphatase was 141. Urinalysis clean, reviewed in history of present illness as well as Radiology. IMPRESSION: 1. Complaints of hematemesis that eventually brought him in. 2. Right lower quadrant abdominal pain. 3. Abnormal CT scan with some distention as described above. 4. Leukocytosis. 5. Acute kidney injury on chronic kidney disease. RECOMMENDATIONS: We will change to Zosyn and Zyvox. Recommend GI evaluation. We will follow up labs and cultures. This was discussed with Dr. Gibson. It is unlikely that this could be C. diff as he has not been on antimicrobials aside from a dose of ceftriaxone in his last admission. He had been on some steroids for his adrenal. Thank you for allowing me to participate in the patient's care. If you have any further concerns or questions, please do not hesitate to contact me. LINDY SOLIZ MD DR: JESSICA/ashley JOB#: [id number] / [id number]
[2018-08-18 19:00] VITALS: BP 129/60
[2018-08-18] MEDS: LACTOBACILLUS RHAMNOSUS GG 1 CAPSULE. PO SCH (21:23)
[2018-08-18] MEDS: SIMVASTATIN 20 MG TABLET PO SCH (21:23)
[2018-08-18] MEDS: INSULIN GLARGINE 300 UNITS/3 ML INSULN.PEN. SQ SCH (21:31)
[2018-08-18 23:00] VITALS: BP 132/59
[2018-08-18] MEDS: LIDO:MAALOX 1:1 20 ML SINGLE DOSE. PO PRN (23:46)
[2018-08-19 03:00] VITALS: BP 139/61
[2018-08-19] MEDS: IV NORMAL SALINE 1000ML BAG 1,000 ML IV SCH ×3 (05:39→23:50)
[2018-08-19] MEDS: PIPERACILLIN/TAZOBACTAM 3.375 GM in IV NORMAL SALINE 50ML 50 ML IV SCH ×4 (05:41→23:50)
[2018-08-19] MEDS: HEPARIN for SUB-Q USE 5,000 UNIT/ML VIAL. SQ SCH ×3 (05:47→22:00)
[2018-08-19 07:00] VITALS: BP 110/57
[2018-08-19] MEDS: INSULIN LISPRO 300 UNITS/3 ML INSULN.PEN. SQ SCH ×3 (08:00→17:00)
[2018-08-19 08:05] LABS: BASO % 0 % (0-3); EOS # 0.1 x10^3/uL (0.0-0.7); EOS % 1 % (0-3); HEMATOCRIT 33.4 % (39.0-53.0); HEMOGLOBIN 11.3 g/dL (13.0-17.5); LYMPH # 1.6 x10^3/uL (1.0-4.8); LYMPH % 18 % (24-48); MEAN CORPUSCULAR HEMOGLOBIN 34 pg (25-35); MEAN CORPUSCULAR HGB CONC 34 g/dL (31-37); MEAN CORPUSCULAR VOLUME 101 fL (79-100); MONO # 0.6 x10^3/uL (0.0-1.1); MONO % 7 % (0-9); NEUT # 6.7 x10^3uL (1.8-7.7); NEUT % 74 % (31-73); PLATELET COUNT 123 x10^3/uL (140-400); RED BLOOD COUNT 3.32 x10^6/uL (4.30-5.70); RED CELL DISTRIBUTION WIDTH 14.3 % (11.5-14.5)
[2018-08-19] MEDS: IPRATRPIUM/ALBUTEROL 0.5/2.5MG 3 ML NEBU. NEB SCH ×4 (08:05→19:41)
[2018-08-19 08:31] LABS: ALBUMIN 3.1 g/dL (3.4-5.0); CALCIUM 8.5 mg/dL (8.5-10.1); CREATININE 1.6 mg/dL (0.7-1.3); PHOSPHORUS 2.5 mg/dL (2.6-4.7); POTASSIUM 4.2 mmol/L (3.5-5.1)
[2018-08-19] MEDS: BENZONATATE 100 MG CAPSULE. PO SCH ×3 (09:30→21:04)
--- NOTE | 2018-08-19 09:55 | PDOC ---
Infectious Disease Note Subjective Subjective Abd pain is some better but has some ant chest pain that hurts with swallow today. States it has been there but not that his abd is some better he is noticing it more Denies radiation N or gen weakness/SOA Feels cold at times and has some cough. No Vomiting No Rash Vital Sign Vital Signs Vital Signs Date Time Temp Pulse Resp B/P (MAP) Pulse Ox O2 Delivery O2 Flow Rate FiO2 08/19/18 08:05 97 Room Air 08/19/18 07:00 98.1 70 18 110/57 (74) 98.1 Physical Exam PHYSICAL EXAM CONSTITUTIONAL: He is alert, cooperative. He is in no acute distress. HEENT: Pupils are status post cataract. Normal conjunctivae. Oral cavity, pharynx is dry, clear. NECK: Supple, no JVD. LUNGS: Clear, have a mild rhonchi on the right. HEART: S1, S2. ABDOMEN: Soft, nondistended. Decreased bowel sounds. He has no tenderness or mild guarding in the right lower extremity. No gross rebound. EXTREMITIES: No clubbing, cyanosis or gross edema. SKIN: Warm to touch without signs of rash. NEUROLOGIC: He is nonfocal. Affect appropriate. Labs Lab Laboratory Tests Test 08/18/18 12:12 08/18/18 16:45 08/18/18 21:08 08/19/18 06:40 Glucose (Fingerstick) 246 mg/dL (70-99) 165 mg/dL (70-99) 153 mg/dL (70-99) Urine Opiates Screen Neg (NEG) Urine Methadone Screen Neg (NEG) Urine Barbiturates Neg (NEG) Urine Phencyclidine Screen Neg (NEG) Urine Amphetamine/Methamphetamine Neg (NEG) Urine Benzodiazepines Screen Neg (NEG) Urine Cocaine Screen Neg (NEG) Urine Cannabinoids Screen Neg (NEG) Urine Ethyl Alcohol Neg (NEG) White Blood Count 9.0 x10^3/uL (4.0-11.0) Red Blood Count 3.32 x10^6/uL (4.30-5.70) Hemoglobin 11.3 g/dL (13.0-17.5) Hematocrit 33.4 % (39.0-53.0) Mean Corpuscular Volume 101 fL (79-100) Mean Corpuscular Hemoglobin 34 pg (25-35) Mean Corpuscular Hemoglobin Concent 34 g/dL (31-37) Red Cell Distribution Width 14.3 % (11.5-14.5) Platelet Count 123 x10^3/uL (140-400) Neutrophils (%) (Auto) 74 % (31-73) Lymphocytes (%) (Auto) 18 % (24-48) Monocytes (%) (Auto) 7 % (0-9) Eosinophils (%) (Auto) 1 % (0-3) Basophils (%) (Auto) 0 % (0-3) Neutrophils # (Auto) 6.7 x10^3uL (1.8-7.7) Lymphocytes # (Auto) 1.6 x10^3/uL (1.0-4.8) Monocytes # (Auto) 0.6 x10^3/uL (0.0-1.1) Eosinophils # (Auto) 0.1 x10^3/uL (0.0-0.7) Basophils # (Auto) 0.0 x10^3/uL (0.0-0.2) Sodium Level 142 mmol/L (136-145) Potassium Level 4.2 mmol/L (3.5-5.1) Chloride Level 105 mmol/L (98-107) Carbon Dioxide Level 24 mmol/L (21-32) Anion Gap 13 (6-14) Blood Urea Nitrogen 24 mg/dL (8-26) Creatinine 1.6 mg/dL (0.7-1.3) Estimated GFR (Cockcroft-Gault) 42.0 Glucose Level 126 mg/dL (70-99) Calcium Level 8.5 mg/dL (8.5-10.1) Phosphorus Level 2.5 mg/dL (2.6-4.7) Albumin 3.1 g/dL (3.4-5.0) Test 08/19/18 07:36 Glucose (Fingerstick) 127 mg/dL (70-99) Micro Microbiology 08/17/18 Urine Culture - Preliminary, Resulted 08/17/18 Urine Culture Result 1 (CM) - Preliminary, Resulted Objective Assessment Hematemesis RLQ Abd pain - some better Swallow discomfort Abnormal CT abd with distension Leukocytosis - improved ZHENG on CKD Plan Plan of Care Cont Zosyn/Zyvox Await Gastric emptying study F/u labs and cults LINDY SOLIZ MD Aug 19, 2018 09:55
[2018-08-19 11:00] VITALS: BP 143/51
[2018-08-19] MEDS: PANTOPRAZOLE 40 MG TABLET.DR. PO SCH (12:46)
[2018-08-19] MEDS: LACTOBACILLUS RHAMNOSUS GG 1 CAPSULE. PO SCH ×2 (12:46→21:04)
[2018-08-19] MEDS: ALLOPURINOL 100 MG TABLET. PO SCH (12:47)
[2018-08-19] MEDS: CITALOPRAM 20 MG TABLET. PO SCH (12:47)
[2018-08-19] MEDS: METOPROLOL SUCC 24HR ER 100 MG TAB.ER.24H. PO SCH (12:48)
[2018-08-19] MEDS: LIDO:MAALOX 1:1 20 ML SINGLE DOSE. PO PRN (12:52)
--- NOTE | 2018-08-19 12:59 | PDOC ---
PROGRESS NOTES Chief Complaint Chief Complaint Intractable nausea and vomiting ,gastroenteritis Diarrhea , need to rule out cdiff Sepsis , could 2/2 gastroenteritis ARF - likely 2/2 GI losses, vasomotor CKD3 Hyperkalemia COPD Diabetes HTN GERD plan: fu with id, change abx to zosyn and zyvox cont ivf clear liquid diet for now increase lantus to 10u qhs, cont ssi hold po dm2 meds, hold ACEi dvt, gi ppx duoneb, albuterol prn check hb a1c GES pending check anemia panel gi cocktail prn add cough meds History of Present Illness History of Present Illness ROS: no fever, chills, or chest pain some cough and sob has N/V and diarrhea for 2-3 weeks. possible vomiting blood? WBC high 21 down to 9, Hb drop to 11 from 14 has chest pain better with gi cocktail abd pain better ,but still. no N/V, no diarrhea Vitals Vitals Vital Signs Date Time Temp Pulse Resp B/P (MAP) Pulse Ox O2 Delivery O2 Flow Rate FiO2 08/19/18 12:48 71 143/51 08/19/18 08:05 97 Room Air 08/19/18 07:00 98.1 18 98.1 Physical Exam Physical Exam CONSTITUTIONAL: He is alert, cooperative. He is in no acute distress. HEENT: Pupils are status post cataract. Normal conjunctivae. Oral cavity, pharynx is dry, clear. NECK: Supple, no JVD. LUNGS: Clear, have a mild rhonchi on the right. HEART: S1, S2. ABDOMEN: Soft, nondistended. Decreased bowel sounds. middle abd tenderness. EXTREMITIES: No clubbing, cyanosis or gross edema. SKIN: Warm to touch without signs of rash. NEUROLOGIC: He is nonfocal. Affect appropriate. General: Alert, Oriented X3, Cooperative, No acute distress Heart: Regular rate, Normal S1, Normal S2 Lungs: Other (bl coarse bs) Abdomen: Other (middle abd moderaet tenderness, with mild guarding, hyperactive bowel sounds) Extremities: No clubbing, No cyanosis, No edema, Normal pulses, No tenderness/ swelling Skin: No rashes, No breakdown, No significant lesion Labs LABS Laboratory Tests Test 08/18/18 16:45 08/18/18 21:08 08/19/18 06:40 10/18/18 07:36 Glucose (Fingerstick) 165 mg/dL (70-99) 153 mg/dL (70-99) 127 mg/dL (70-99) Urine Opiates Screen Neg (NEG) Urine Methadone Screen Neg (NEG) Urine Barbiturates Neg (NEG) Urine Phencyclidine Screen Neg (NEG) Urine Amphetamine/Methamphetamine Neg (NEG) Urine Benzodiazepines Screen Neg (NEG) Urine Cocaine Screen Neg (NEG) Urine Cannabinoids Screen Neg (NEG) Urine Ethyl Alcohol Neg (NEG) White Blood Count 9.0 x10^3/uL (4.0-11.0) Red Blood Count 3.32 x10^6/uL (4.30-5.70) Hemoglobin 11.3 g/dL (13.0-17.5) Hematocrit 33.4 % (39.0-53.0) Mean Corpuscular Volume 101 fL (79-100) Mean Corpuscular Hemoglobin 34 pg (25-35) Mean Corpuscular Hemoglobin Concent 34 g/dL (31-37) Red Cell Distribution Width 14.3 % (11.5-14.5) Platelet Count 123 x10^3/uL (140-400) Neutrophils (%) (Auto) 74 % (31-73) Lymphocytes (%) (Auto) 18 % (24-48) Monocytes (%) (Auto) 7 % (0-9) Eosinophils (%) (Auto) 1 % (0-3) Basophils (%) (Auto) 0 % (0-3) Neutrophils # (Auto) 6.7 x10^3uL (1.8-7.7) Lymphocytes # (Auto) 1.6 x10^3/uL (1.0-4.8) Monocytes # (Auto) 0.6 x10^3/uL (0.0-1.1) Eosinophils # (Auto) 0.1 x10^3/uL (0.0-0.7) Basophils # (Auto) 0.0 x10^3/uL (0.0-0.2) Sodium Level 142 mmol/L (136-145) Potassium Level 4.2 mmol/L (3.5-5.1) Chloride Level 105 mmol/L (98-107) Carbon Dioxide Level 24 mmol/L (21-32) Anion Gap 13 (6-14) Blood Urea Nitrogen 24 mg/dL (8-26) Creatinine 1.6 mg/dL (0.7-1.3) Estimated GFR (Cockcroft-Gault) 42.0 Glucose Level 126 mg/dL (70-99) Calcium Level 8.5 mg/dL (8.5-10.1) Phosphorus Level 2.5 mg/dL (2.6-4.7) Albumin 3.1 g/dL (3.4-5.0) Assessment and Plan Assessmemt and Plan Problems Medical Problems: (1) Nausea vomiting and diarrhea Status: Acute (2) Renal failure (ARF), acute on chronic Status: Acute Comment Review of Relevant I have reviewed the following items citlalli (where applicable) has been applied. Labs Laboratory Tests Test 08/17/18 17:43 08/17/18 21:16 08/18/18 05:15 08/18/18 08:37 Glucose (Fingerstick) 308 mg/dL (70-99) 188 mg/dL (70-99) 209 mg/dL (70-99) White Blood Count 21.4 x10^3/uL (4.0-11.0) Red Blood Count 3.82 x10^6/uL (4.30-5.70) Hemoglobin 12.7 g/dL (13.0-17.5) Hematocrit 38.4 % (39.0-53.0) Mean Corpuscular Volume 101 fL (79-100) Mean Corpuscular Hemoglobin 33 pg (25-35) Mean Corpuscular Hemoglobin Concent 33 g/dL (31-37) Red Cell Distribution Width 14.1 % (11.5-14.5) Platelet Count 161 x10^3/uL (140-400) Neutrophils (%) (Auto) 90 % (31-73) Lymphocytes (%) (Auto) 5 % (24-48) Monocytes (%) (Auto) 5 % (0-9) Eosinophils (%) (Auto) 0 % (0-3) Basophils (%) (Auto) 0 % (0-3) Neutrophils # (Auto) 19.2 x10^3uL (1.8-7.7) Lymphocytes # (Auto) 1.1 x10^3/uL (1.0-4.8) Monocytes # (Auto) 1.1 x10^3/uL (0.0-1.1) Eosinophils # (Auto) 0.0 x10^3/uL (0.0-0.7) Basophils # (Auto) 0.0 x10^3/uL (0.0-0.2) Reticulocyte Count (auto) 1.4 % (0.5-2.5) Sodium Level 138 mmol/L (136-145) Potassium Level 5.1 mmol/L (3.5-5.1) Chloride Level 105 mmol/L (98-107) Carbon Dioxide Level 22 mmol/L (21-32) Anion Gap 11 (6-14) Blood Urea Nitrogen 40 mg/dL (8-26) Creatinine 1.7 mg/dL (0.7-1.3) Estimated GFR (Cockcroft-Gault) 39.2 Glucose Level 200 mg/dL (70-99) Calcium Level 9.1 mg/dL (8.5-10.1) Phosphorus Level 3.1 mg/dL (2.6-4.7) Albumin 3.6 g/dL (3.4-5.0) Vitamin B12 Level 501 pg/mL (247-911) Test 08/18/18 12:12 08/18/18 16:45 08/18/18 21:08 08/19/18 06:40 Glucose (Fingerstick) 246 mg/dL (70-99) 165 mg/dL (70-99) 153 mg/dL (70-99) Urine Opiates Screen Neg (NEG) Urine Methadone Screen Neg (NEG) Urine Barbiturates Neg (NEG) Urine Phencyclidine Screen Neg (NEG) Urine Amphetamine/Methamphetamine Neg (NEG) Urine Benzodiazepines Screen Neg (NEG) Urine Cocaine Screen Neg (NEG) Urine Cannabinoids Screen Neg (NEG) Urine Ethyl Alcohol Neg (NEG) White Blood Count 9.0 x10^3/uL (4.0-11.0) Red Blood Count 3.32 x10^6/uL (4.30-5.70) Hemoglobin 11.3 g/dL (13.0-17.5) Hematocrit 33.4 % (39.0-53.0) Mean Corpuscular Volume 101 fL (79-100) Mean Corpuscular Hemoglobin 34 pg (25-35) Mean Corpuscular Hemoglobin Concent 34 g/dL (31-37) Red Cell Distribution Width 14.3 % (11.5-14.5) Platelet Count 123 x10^3/uL (140-400) Neutrophils (%) (Auto) 74 % (31-73) Lymphocytes (%) (Auto) 18 % (24-48) Monocytes (%) (Auto) 7 % (0-9) Eosinophils (%) (Auto) 1 % (0-3) Basophils (%) (Auto) 0 % (0-3) Neutrophils # (Auto) 6.7 x10^3uL (1.8-7.7) Lymphocytes # (Auto) 1.6 x10^3/uL (1.0-4.8) Monocytes # (Auto) 0.6 x10^3/uL (0.0-1.1) Eosinophils # (Auto) 0.1 x10^3/uL (0.0-0.7) Basophils # (Auto) 0.0 x10^3/uL (0.0-0.2) Sodium Level 142 mmol/L (136-145) Potassium Level 4.2 mmol/L (3.5-5.1) Chloride Level 105 mmol/L (98-107) Carbon Dioxide Level 24 mmol/L (21-32) Anion Gap 13 (6-14) Blood Urea Nitrogen 24 mg/dL (8-26) Creatinine 1.6 mg/dL (0.7-1.3) Estimated GFR (Cockcroft-Gault) 42.0 Glucose Level 126 mg/dL (70-99) Calcium Level 8.5 mg/dL (8.5-10.1) Phosphorus Level 2.5 mg/dL (2.6-4.7) Albumin 3.1 g/dL (3.4-5.0) Test 08/19/18 07:36 Glucose (Fingerstick) 127 mg/dL (70-99) Laboratory Tests Test 08/18/18 16:45 08/18/18 21:08 08/19/18 06:40 08/19/18 07:36 Glucose (Fingerstick) 165 mg/dL (70-99) 153 mg/dL (70-99) 127 mg/dL (70-99) Urine Opiates Screen Neg (NEG) Urine Methadone Screen Neg (NEG) Urine Barbiturates Neg (NEG) Urine Phencyclidine Screen Neg (NEG) Urine Amphetamine/Methamphetamine Neg (NEG) Urine Benzodiazepines Screen Neg (NEG) Urine Cocaine Screen Neg (NEG) Urine Cannabinoids Screen Neg (NEG) Urine Ethyl Alcohol Neg (NEG) White Blood Count 9.0 x10^3/uL (4.0-11.0) Red Blood Count 3.32 x10^6/uL (4.30-5.70) Hemoglobin 11.3 g/dL (13.0-17.5) Hematocrit 33.4 % (39.0-53.0) Mean Corpuscular Volume 101 fL (79-100) Mean Corpuscular Hemoglobin 34 pg (25-35) Mean Corpuscular Hemoglobin Concent 34 g/dL (31-37) Red Cell Distribution Width 14.3 % (11.5-14.5) Platelet Count 123 x10^3/uL (140-400) Neutrophils (%) (Auto) 74 % (31-73) Lymphocytes (%) (Auto) 18 % (24-48) Monocytes (%) (Auto) 7 % (0-9) Eosinophils (%) (Auto) 1 % (0-3) Basophils (%) (Auto) 0 % (0-3) Neutrophils # (Auto) 6.7 x10^3uL (1.8-7.7) Lymphocytes # (Auto) 1.6 x10^3/uL (1.0-4.8) Monocytes # (Auto) 0.6 x10^3/uL (0.0-1.1) Eosinophils # (Auto) 0.1 x10^3/uL (0.0-0.7) Basophils # (Auto) 0.0 x10^3/uL (0.0-0.2) Sodium Level 142 mmol/L (136-145) Potassium Level 4.2 mmol/L (3.5-5.1) Chloride Level 105 mmol/L (98-107) Carbon Dioxide Level 24 mmol/L (21-32) Anion Gap 13 (6-14) Blood Urea Nitrogen 24 mg/dL (8-26) Creatinine 1.6 mg/dL (0.7-1.3) Estimated GFR (Cockcroft-Gault) 42.0 Glucose Level 126 mg/dL (70-99) Calcium Level 8.5 mg/dL (8.5-10.1) Phosphorus Level 2.5 mg/dL (2.6-4.7) Albumin 3.1 g/dL (3.4-5.0) Microbiology 08/17/18 Urine Culture - Preliminary, Resulted 08/17/18 Urine Culture Result 1 ([facility]) - Preliminary, Resulted Medications Current Medications Ondansetron HCl (Zofran) 4 mg 1X ONCE IV Last administered on 08/17/18at 07:47 ; Start 08/17/18 at 07:45; Stop 08/17/18 at 07:46; Status DC Sodium Chloride 1,000 ml @ 1,000 mls/hr 1X ONCE IV Last administered on 08/17at 07:46; Start 08/17/18 at 07:45; Stop 08/17/18 at 08:44; Status DC Ceftriaxone Sodium 50 ml @ 100 mls/hr 1X ONCE IV Last administered on at 09:27; Start 08/17/18 at 08:30; Stop 08/17/18 at 08:59; Status DC Metronidazole 100 ml @ 100 mls/hr 1X ONCE IV Last administered on 08/17/18at 10:27; Start 08/17/18 at 08:30; Stop 08/17/18 at 09:29; Status DC Ondansetron HCl (Zofran) 4 mg 1X ONCE IV Last administered on 08/17/18at 10:27 ; Start 08/17/18 at 10:00; Stop 08/17/18 at 10:01; Status DC Sodium Chloride 1,000 ml @ 100 mls/hr Q10H IV Last administered on 08/18/18at 06:41; Start 08/17/18 at 10:39; Stop 08/18/18 at 10:38; Status DC Ringer's Solution 1,000 ml @ 100 mls/hr Q10H IV ; Start 08/17/18 at 16:00; Stop 08/18/18 at 01:59; Status DC Ondansetron HCl (Zofran) 4 mg PRN Q6HRS PRN IV NAUSEA/VOMITING Last administered on 08/18/18at 08:52; Start 08/17/18 at 15:00 Oxycodone HCl (Roxicodone) 5 mg PRN Q3HRS PRN PO BREAKTHROUGH PAIN Last administered on 08/18/18at 03:06; Start 08/17/18 at 15:00 Acetaminophen (Tylenol) 650 mg PRN Q6HRS PRN PO Headaches, Temp > 101.5F; Start 08/17/18 at 15:00 Heparin Sodium (Porcine) (Heparin Sodium) 5,000 unit Q8HRS SQ Last administered on 08/19/18at 05:47; Start 08/17/18 at 22:00 Insulin Glargine (Lantus) 8 units QHS SQ Last administered on 08/17/18at 21:27 ; Start 08/17/18 at 21:00; Stop 08/18/18 at 11:18; Status DC Insulin Human Lispro (HumaLOG) 0-7 UNITS TIDWMEALS SQ Last administered on at 12:51; Start 08/17/18 at 17:00 Dextrose (Dextrose 50%-Water Syringe) 12.5 gm PRN Q15MIN PRN IV SEE COMMENTS; Start 08/17/18 at 15:00 Allopurinol (Zyloprim) 100 mg DAILY PO Last administered on 08/19/18at 12:47; Start 08/17/18 at 16:00 Citalopram Hydrobromide (CeleXA) 20 mg DAILY PO Last administered on at 12:47; Start 08/18/18 at 09:00 Metoprolol Succinate (Toprol Xl) 200 mg DAILY PO Last administered on at 12:48; Start 08/17/18 at 16:00 Simvastatin (Zocor) 20 mg HS PO Last administered on 08/18/18at 21:23; Start 08/17/18 at 21:00 Labetalol HCl (Normodyne Iv Push) 10 mg PRN Q4HRS PRN IVP HYPERTENSION, SEE COMMENTS; Start 08/17/18 at 15:00 Albuterol/ Ipratropium (Duoneb) 3 ml RTQID NEB Last administered on 08/19/18at 08:05; Start 08/17/18 at 16:00 Metronidazole 100 ml @ 100 mls/hr Q8HRS IV Last administered on 08/18/18at 06: 32; Start 08/17/18 at 22:00; Stop 08/18/18 at 08:22; Status DC Albuterol Sulfate (Ventolin Neb Soln) 2.5 mg PRN Q4HRS PRN NEB SHORTNESS OF BREATH; Start 08/18/18 at 08:00 Sodium Chloride 1,000 ml @ 100 mls/hr Q10H IV Last administered on 08/18/18at 17:02; Start 08/18/18 at 08:00 Piperacillin Sod/ Tazobactam Sod 3.375 gm/Sodium Chloride 50 ml @ 100 mls/hr Q6HRS IV Last administered on 08/19/18at 11:25; Start 08/18/18 at 08:30 Linezolid/Dextrose 300 ml @ 300 mls/hr Q12HR IV Last administered on at 08:50; Start 08/18/18 at 09:00 Insulin Glargine (Lantus) 10 units QHS SQ Last administered on 08/18/18at 21:31 ; Start 08/18/18 at 21:00 Pantoprazole Sodium (Protonix) 40 mg DAILYAC PO Last administered on at 12:46; Start 08/18/18 at 12:30 Lactobacillus Rhamnosus (Culturelle) 1 cap BID PO Last administered on at 12:46; Start 08/18/18 at 21:00 Multi-Ingredient Mouthwash/Gargle (Gi Cocktail) 20 ml PRN DAILY PRN PO GI SYMPTOMS Last administered on 08/19/18at 12:52; Start 08/18/18 at 23:15 Benzonatate (Tessalon Perle) 100 mg [id number] PO Last administered on 08/19/18at 12:47; Start 08/19/18 at 09:30 Active Scripts Active Reported Glyburide 5 Mg Tablet 1 Tab PO BID Metformin Hcl 500 Mg Tablet 500 Mg PO DAILY08 Allopurinol 100 Mg Tablet 1 Tab PO DAILY Lisinopril 20 Mg Tablet 1 Tab PO DAILY Lisinopril-Hctz 20-25 Mg Tab (Lisinopril/Hydrochlorothiazide) 1 Each Tablet 1 Tab PO DAILY Actos (Pioglitazone Hcl) 30 Mg Tablet 1 Tab PO DAILY Glimepiride 1 Mg Tablet 1 Tab PO DAILY Metoprolol Succinate ( Xl ) (Metoprolol Succinate) 200 Mg Tab.er.24h 1 Tab PO DAILY Escitalopram Oxalate 10 Mg Tablet 1 Tab PO DAILY Simvastatin 20 Mg Tablet 1 Tab PO QHS Vitals/I & O Vital Sign - Last 24 Hours 08/18/18 08/18/18 08/18/18 08/18/18 13:02 19:00 20:20 20:46 Temp 98.6 98.6 Pulse 57 Resp 18 B/P (MAP) 129/60 (83) Pulse Ox 98 98 O2 Delivery Room Air Room Air Room Air Room Air 08/18/18 08/19/18 08/19/18 08/19/18 23:00 03:00 07:00 08:05 Temp 98.1 97.9 98.1 98.1 97.9 98.1 Pulse 68 62 70 Resp 18 18 18 B/P (MAP) 132/59 (83) 139/61 (87) 110/57 (74) Pulse Ox 98 97 99 97 O2 Delivery Room Air Room Air Room Air Room Air 08/19/18 12:48 Pulse 71 B/P (MAP) 143/51 Intake and Output 08/18/18 08/18/18 08/19/18 15:00 23:00 07:00 Intake Total 270 ml 180 ml Output Total 175 ml Balance 270 ml 180 ml -175 ml NANO SAEZ MD Aug 19, 2018 12:59
--- NOTE | 2018-08-19 13:23 | PDOC ---
Subjective: Subjective: Better - GES in process. No vomiting. Still some abd pain, also reports some pain in his chest w/ swallowing. Objective: Vital Signs: Vital Signs Date Time Temp Pulse Resp B/P (MAP) Pulse Ox O2 Delivery O2 Flow Rate FiO2 08/19/18 13:07 Room Air 08/19/18 12:48 71 143/51 08/19/18 11:00 96.8 18 100 96.8 Labs: Laboratory Tests Test 08/18/18 16:45 08/18/18 21:08 08/19/18 06:40 08/19/18 07:36 Glucose (Fingerstick) 165 mg/dL 153 mg/dL 127 mg/dL Urine Opiates Screen Neg Urine Methadone Screen Neg Urine Barbiturates Neg Urine Phencyclidine Screen Neg Urine Amphetamine/Methamphetamine Neg Urine Benzodiazepines Screen Neg Urine Cocaine Screen Neg Urine Cannabinoids Screen Neg Urine Ethyl Alcohol Neg White Blood Count 9.0 x10^3/uL Red Blood Count 3.32 x10^6/uL Hemoglobin 11.3 g/dL Hematocrit 33.4 % Mean Corpuscular Volume 101 fL Mean Corpuscular Hemoglobin 34 pg Mean Corpuscular Hemoglobin Concent 34 g/dL Red Cell Distribution Width 14.3 % Platelet Count 123 x10^3/uL Neutrophils (%) (Auto) 74 % Lymphocytes (%) (Auto) 18 % Monocytes (%) (Auto) 7 % Eosinophils (%) (Auto) 1 % Basophils (%) (Auto) 0 % Neutrophils # (Auto) 6.7 x10^3uL Lymphocytes # (Auto) 1.6 x10^3/uL Monocytes # (Auto) 0.6 x10^3/uL Eosinophils # (Auto) 0.1 x10^3/uL Basophils # (Auto) 0.0 x10^3/uL Sodium Level 142 mmol/L Potassium Level 4.2 mmol/L Chloride Level 105 mmol/L Carbon Dioxide Level 24 mmol/L Anion Gap 13 Blood Urea Nitrogen 24 mg/dL Creatinine 1.6 mg/dL Estimated GFR (Cockcroft-Gault) 42.0 Glucose Level 126 mg/dL Calcium Level 8.5 mg/dL Phosphorus Level 2.5 mg/dL Albumin 3.1 g/dL Imaging: GES pending PE: GEN: NAD LUNGS: CTAB HEART: RRR ABD: tender below umbilicus, some epigastrium NEURO/PSYCH: A & O 3 A/P: Recurrent n/v - now w/ abd pain and ?odynophagia -- Symptoms improved. Await GES - when complete, can resume clears and ADAT. Continue PPI. Note also has GI cocktail ordered. Recent 'scopes per GI consult note. ARIE WEST Aug 19, 2018 13:23
--- NOTE | 2018-08-19 13:38 | RAD ---
EXAM: Nuclear gastric emptying scan. HISTORY: Nausea and vomiting COMPARISON: None. TECHNIQUE: Serial static images were obtained over the stomach following oral administration of 2 mCi of 99m-Tc sulfur colloid. FINDINGS: The stomach empties into the small bowel without evidence of reflux in the area of the esophagus. The estimated time for half emptying of gastric contents, i.e. 'gastric emptying time' is 35 minutes (normal is 66 +/- 22 minutes). IMPRESSION: Relatively rapid gastric emptying. No evidence of delayed gastric emptying. Electronically signed by: Tarsha Eisenberg MD (08/19/2018 1:35 PM) [place] [id number]
[2018-08-19 15:00] VITALS: BP 134/60
[2018-08-19 15:59] LABS: FECAL OB PT NEGATIVE (NEG)
[2018-08-19 19:00] VITALS: BP 134/64
[2018-08-19] MEDS: SIMVASTATIN 20 MG TABLET PO SCH (21:05)
[2018-08-19] MEDS: INSULIN GLARGINE 300 UNITS/3 ML INSULN.PEN. SQ SCH (21:16)
[2018-08-19 23:08] VITALS: BP 142/63
[2018-08-20 03:12] VITALS: BP 136/66
[2018-08-20 06:00] LABS: ALBUMIN 2.6 g/dL (3.4-5.0); CALCIUM 7.9 mg/dL (8.5-10.1); CREATININE 1.4 mg/dL (0.7-1.3); PHOSPHORUS 2.5 mg/dL (2.6-4.7); POTASSIUM 3.6 mmol/L (3.5-5.1)
[2018-08-20] MEDS: PIPERACILLIN/TAZOBACTAM 3.375 GM in IV NORMAL SALINE 50ML 50 ML IV SCH ×2 (06:25→11:17)
[2018-08-20] MEDS: HEPARIN for SUB-Q USE 5,000 UNIT/ML VIAL. SQ SCH ×3 (06:29→21:04)
[2018-08-20 07:00] VITALS: BP 143/61
[2018-08-20] MEDS: IPRATRPIUM/ALBUTEROL 0.5/2.5MG 3 ML NEBU. NEB SCH ×4 (07:14→19:51)
[2018-08-20] MEDS: PANTOPRAZOLE 40 MG TABLET.DR. PO SCH (07:25)
[2018-08-20] MEDS: INSULIN LISPRO 300 UNITS/3 ML INSULN.PEN. SQ SCH ×3 (08:00→17:00)
[2018-08-20] MEDS: LACTOBACILLUS RHAMNOSUS GG 1 CAPSULE. PO SCH ×2 (09:02→21:03)
[2018-08-20] MEDS: METOPROLOL SUCC 24HR ER 100 MG TAB.ER.24H. PO SCH (09:03)
[2018-08-20] MEDS: ALLOPURINOL 100 MG TABLET. PO SCH (09:03)
[2018-08-20] MEDS: CITALOPRAM 20 MG TABLET. PO SCH (09:03)
[2018-08-20] MEDS: BENZONATATE 100 MG CAPSULE. PO SCH ×3 (09:03→21:03)
[2018-08-20] MEDS: LIDO:MAALOX 1:1 20 ML SINGLE DOSE. PO PRN ×2 (09:07→17:07)
[2018-08-20 09:48] LABS: BASO % 1 % (0-3); EOS # 0.1 x10^3/uL (0.0-0.7); EOS % 2 % (0-3); HEMATOCRIT 30.3 % (39.0-53.0); HEMOGLOBIN 10.3 g/dL (13.0-17.5); LYMPH # 1.5 x10^3/uL (1.0-4.8); LYMPH % 27 % (24-48); MEAN CORPUSCULAR HEMOGLOBIN 34 pg (25-35); MEAN CORPUSCULAR HGB CONC 34 g/dL (31-37); MEAN CORPUSCULAR VOLUME 100 fL (79-100); MONO # 0.4 x10^3/uL (0.0-1.1); MONO % 7 % (0-9); NEUT # 3.5 x10^3uL (1.8-7.7); NEUT % 63 % (31-73); PLATELET COUNT 106 x10^3/uL (140-400); RED BLOOD COUNT 3.02 x10^6/uL (4.30-5.70); RED CELL DISTRIBUTION WIDTH 14.2 % (11.5-14.5); WHITE BLOOD COUNT 5.6 x10^3/uL (4.0-11.0)
--- NOTE | 2018-08-20 10:58 | PDOC ---
PROGRESS NOTES Chief Complaint Chief Complaint Intractable nausea and vomiting ,gastroenteritis Diarrhea , need to rule out cdiff Sepsis , could 2/2 gastroenteritis ARF - likely 2/2 GI losses, vasomotor CKD3 Hyperkalemia COPD Diabetes HTN GERD, esophagitis, duodenitis from recent EGD no gastroparesis plan: fu with id, change abx to zosyn and zyvox cont ivf clear liquid diet for now, advance if ok with gi increased lantus to 10u qhs, cont ssi hold po dm2 meds, hold ACEi dvt, gi ppx duoneb, albuterol prn check hb a1c GESneg check anemia panel gi cocktail prn add cough meds + ucx with enterococus, but no UTI symptom, defer to ID History of Present Illness History of Present Illness ROS: no fever, chills, or chest pain some cough and sob has N/V and diarrhea for 2-3 weeks. possible vomiting blood? WBC high 21 down to 9, Hb drop to 10 from 14, but it is same as he was dced 2 weeks ago has chest pain better with gi cocktail abd pain better ,but still 6/10, no N/V, small watery diarrhea overnight 5times GES neg Vitals Vitals Vital Signs Date Time Temp Pulse Resp B/P (MAP) Pulse Ox O2 Delivery O2 Flow Rate FiO2 08/20/18 09:03 69 143/61 08/20/18 08:00 Room Air 08/20/18 07:16 98 08/20/18 07:00 97.4 18 97.4 Physical Exam Physical Exam CONSTITUTIONAL: He is alert, cooperative. He is in no acute distress. HEENT: Pupils are status post cataract. Normal conjunctivae. Oral cavity, pharynx is dry, clear. NECK: Supple, no JVD. LUNGS: Clear, have a mild rhonchi on the right. HEART: S1, S2. ABDOMEN: Soft, nondistended. Decreased bowel sounds. middle abd tenderness. EXTREMITIES: No clubbing, cyanosis or gross edema. SKIN: Warm to touch without signs of rash. NEUROLOGIC: He is nonfocal. Affect appropriate. General: Alert, Oriented X3, Cooperative, No acute distress Heart: Regular rate, Normal S1, Normal S2 Lungs: Other (bl coarse bs) Abdomen: Other (middle abd moderaet tenderness, with mild guarding, hyperactive bowel sounds) Extremities: No clubbing, No cyanosis, No edema, Normal pulses, No tenderness/ swelling Skin: No rashes, No breakdown, No significant lesion Labs LABS Laboratory Tests Test 08/19/18 12:41 08/19/18 15:10 08/19/18 17:02 08/19/18 20:41 Glucose (Fingerstick) 171 mg/dL (70-99) 94 mg/dL (70-99) 120 mg/dL (70-99) Stool Occult Blood Negative (NEG) Test 08/20/18 04:40 08/20/18 08:02 White Blood Count 5.6 x10^3/uL (4.0-11.0) Red Blood Count 3.02 x10^6/uL (4.30-5.70) Hemoglobin 10.3 g/dL (13.0-17.5) Hematocrit 30.3 % (39.0-53.0) Mean Corpuscular Volume 100 fL (79-100) Mean Corpuscular Hemoglobin 34 pg (25-35) Mean Corpuscular Hemoglobin Concent 34 g/dL (31-37) Red Cell Distribution Width 14.2 % (11.5-14.5) Platelet Count 106 x10^3/uL (140-400) Neutrophils (%) (Auto) 63 % (31-73) Lymphocytes (%) (Auto) 27 % (24-48) Monocytes (%) (Auto) 7 % (0-9) Eosinophils (%) (Auto) 2 % (0-3) Basophils (%) (Auto) 1 % (0-3) Neutrophils # (Auto) 3.5 x10^3uL (1.8-7.7) Lymphocytes # (Auto) 1.5 x10^3/uL (1.0-4.8) Monocytes # (Auto) 0.4 x10^3/uL (0.0-1.1) Eosinophils # (Auto) 0.1 x10^3/uL (0.0-0.7) Basophils # (Auto) 0.0 x10^3/uL (0.0-0.2) Sodium Level 140 mmol/L (136-145) Potassium Level 3.6 mmol/L (3.5-5.1) Chloride Level 107 mmol/L (98-107) Carbon Dioxide Level 25 mmol/L (21-32) Anion Gap 8 (6-14) Blood Urea Nitrogen 15 mg/dL (8-26) Creatinine 1.4 mg/dL (0.7-1.3) Estimated GFR (Cockcroft-Gault) 49.0 Glucose Level 97 mg/dL (70-99) Calcium Level 7.9 mg/dL (8.5-10.1) Phosphorus Level 2.5 mg/dL (2.6-4.7) Iron Level 74 ug/dL (65-175) Total Iron Binding Capacity 170 ug/dL (250-450) Iron Saturation 44 % (15-34) Ferritin 598 ng/mL (26-388) Albumin 2.6 g/dL (3.4-5.0) Vitamin B12 Level 372 pg/mL (247-911) Glucose (Fingerstick) 92 mg/dL (70-99) Assessment and Plan Assessmemt and Plan Problems Medical Problems: (1) Nausea vomiting and diarrhea Status: Acute (2) Renal failure (ARF), acute on chronic Status: Acute Comment Review of Relevant I have reviewed the following items citlalli (where applicable) has been applied. Labs Laboratory Tests Test 08/18/18 12:12 08/18/18 16:45 08/18/18 21:08 08/19/18 06:40 Glucose (Fingerstick) 246 mg/dL (70-99) 165 mg/dL (70-99) 153 mg/dL (70-99) Urine Opiates Screen Neg (NEG) Urine Methadone Screen Neg (NEG) Urine Barbiturates Neg (NEG) Urine Phencyclidine Screen Neg (NEG) Urine Amphetamine/Methamphetamine Neg (NEG) Urine Benzodiazepines Screen Neg (NEG) Urine Cocaine Screen Neg (NEG) Urine Cannabinoids Screen Neg (NEG) Urine Ethyl Alcohol Neg (NEG) White Blood Count 9.0 x10^3/uL (4.0-11.0) Red Blood Count 3.32 x10^6/uL (4.30-5.70) Hemoglobin 11.3 g/dL (13.0-17.5) Hematocrit 33.4 % (39.0-53.0) Mean Corpuscular Volume 101 fL (79-100) Mean Corpuscular Hemoglobin 34 pg (25-35) Mean Corpuscular Hemoglobin Concent 34 g/dL (31-37) Red Cell Distribution Width 14.3 % (11.5-14.5) Platelet Count 123 x10^3/uL (140-400) Neutrophils (%) (Auto) 74 % (31-73) Lymphocytes (%) (Auto) 18 % (24-48) Monocytes (%) (Auto) 7 % (0-9) Eosinophils (%) (Auto) 1 % (0-3) Basophils (%) (Auto) 0 % (0-3) Neutrophils # (Auto) 6.7 x10^3uL (1.8-7.7) Lymphocytes # (Auto) 1.6 x10^3/uL (1.0-4.8) Monocytes # (Auto) 0.6 x10^3/uL (0.0-1.1) Eosinophils # (Auto) 0.1 x10^3/uL (0.0-0.7) Basophils # (Auto) 0.0 x10^3/uL (0.0-0.2) Sodium Level 142 mmol/L (136-145) Potassium Level 4.2 mmol/L (3.5-5.1) Chloride Level 105 mmol/L (98-107) Carbon Dioxide Level 24 mmol/L (21-32) Anion Gap 13 (6-14) Blood Urea Nitrogen 24 mg/dL (8-26) Creatinine 1.6 mg/dL (0.7-1.3) Estimated GFR (Cockcroft-Gault) 42.0 Glucose Level 126 mg/dL (70-99) Calcium Level 8.5 mg/dL (8.5-10.1) Phosphorus Level 2.5 mg/dL (2.6-4.7) Albumin 3.1 g/dL (3.4-5.0) Test 08/19/18 07:36 08/19/18 12:41 08/19/18 15:10 08/19/18 17:02 Glucose (Fingerstick) 127 mg/dL (70-99) 171 mg/dL (70-99) 94 mg/dL (70-99) Stool Occult Blood Negative (NEG) Test 08/19/18 20:41 08/20/18 04:40 08/20/18 08:02 Glucose (Fingerstick) 120 mg/dL (70-99) 92 mg/dL (70-99) White Blood Count 5.6 x10^3/uL (4.0-11.0) Red Blood Count 3.02 x10^6/uL (4.30-5.70) Hemoglobin 10.3 g/dL (13.0-17.5) Hematocrit 30.3 % (39.0-53.0) Mean Corpuscular Volume 100 fL (79-100) Mean Corpuscular Hemoglobin 34 pg (25-35) Mean Corpuscular Hemoglobin Concent 34 g/dL (31-37) Red Cell Distribution Width 14.2 % (11.5-14.5) Platelet Count 106 x10^3/uL (140-400) Neutrophils (%) (Auto) 63 % (31-73) Lymphocytes (%) (Auto) 27 % (24-48) Monocytes (%) (Auto) 7 % (0-9) Eosinophils (%) (Auto) 2 % (0-3) Basophils (%) (Auto) 1 % (0-3) Neutrophils # (Auto) 3.5 x10^3uL (1.8-7.7) Lymphocytes # (Auto) 1.5 x10^3/uL (1.0-4.8) Monocytes # (Auto) 0.4 x10^3/uL (0.0-1.1) Eosinophils # (Auto) 0.1 x10^3/uL (0.0-0.7) Basophils # (Auto) 0.0 x10^3/uL (0.0-0.2) Sodium Level 140 mmol/L (136-145) Potassium Level 3.6 mmol/L (3.5-5.1) Chloride Level 107 mmol/L (98-107) Carbon Dioxide Level 25 mmol/L (21-32) Anion Gap 8 (6-14) Blood Urea Nitrogen 15 mg/dL (8-26) Creatinine 1.4 mg/dL (0.7-1.3) Estimated GFR (Cockcroft-Gault) 49.0 Glucose Level 97 mg/dL (70-99) Calcium Level 7.9 mg/dL (8.5-10.1) Phosphorus Level 2.5 mg/dL (2.6-4.7) Iron Level 74 ug/dL (65-175) Total Iron Binding Capacity 170 ug/dL (250-450) Iron Saturation 44 % (15-34) Ferritin 598 ng/mL (26-388) Albumin 2.6 g/dL (3.4-5.0) Vitamin B12 Level 372 pg/mL (247-911) Laboratory Tests Test 08/19/18 12:41 08/19/18 15:10 08/19/18 17:02 08/19/18 20:41 Glucose (Fingerstick) 171 mg/dL (70-99) 94 mg/dL (70-99) 120 mg/dL (70-99) Stool Occult Blood Negative (NEG) Test 08/20/18 04:40 08/20/18 08:02 White Blood Count 5.6 x10^3/uL (4.0-11.0) Red Blood Count 3.02 x10^6/uL (4.30-5.70) Hemoglobin 10.3 g/dL (13.0-17.5) Hematocrit 30.3 % (39.0-53.0) Mean Corpuscular Volume 100 fL (79-100) Mean Corpuscular Hemoglobin 34 pg (25-35) Mean Corpuscular Hemoglobin Concent 34 g/dL (31-37) Red Cell Distribution Width 14.2 % (11.5-14.5) Platelet Count 106 x10^3/uL (140-400) Neutrophils (%) (Auto) 63 % (31-73) Lymphocytes (%) (Auto) 27 % (24-48) Monocytes (%) (Auto) 7 % (0-9) Eosinophils (%) (Auto) 2 % (0-3) Basophils (%) (Auto) 1 % (0-3) Neutrophils # (Auto) 3.5 x10^3uL (1.8-7.7) Lymphocytes # (Auto) 1.5 x10^3/uL (1.0-4.8) Monocytes # (Auto) 0.4 x10^3/uL (0.0-1.1) Eosinophils # (Auto) 0.1 x10^3/uL (0.0-0.7) Basophils # (Auto) 0.0 x10^3/uL (0.0-0.2) Sodium Level 140 mmol/L (136-145) Potassium Level 3.6 mmol/L (3.5-5.1) Chloride Level 107 mmol/L (98-107) Carbon Dioxide Level 25 mmol/L (21-32) Anion Gap 8 (6-14) Blood Urea Nitrogen 15 mg/dL (8-26) Creatinine 1.4 mg/dL (0.7-1.3) Estimated GFR (Cockcroft-Gault) 49.0 Glucose Level 97 mg/dL (70-99) Calcium Level 7.9 mg/dL (8.5-10.1) Phosphorus Level 2.5 mg/dL (2.6-4.7) Iron Level 74 ug/dL (65-175) Total Iron Binding Capacity 170 ug/dL (250-450) Iron Saturation 44 % (15-34) Ferritin 598 ng/mL (26-388) Albumin 2.6 g/dL (3.4-5.0) Vitamin B12 Level 372 pg/mL (247-911) Glucose (Fingerstick) 92 mg/dL (70-99) Microbiology 08/17/18 Stool Culture - Final, Resulted 08/17/18 Stool Culture Result 1 (CM) - Final, Resulted 08/17/18 Campylobacter Antigen Assay - Preliminary, Resulted 08/17/18 Campylobactor Result 1 - Preliminary, Resulted 08/17/18 Shiga Toxin Test, Resulted Pending 08/17/18 Urine Culture - Final, Complete 08/17/18 Urine Culture Result 1 (CM) - Final, Complete 08/17/18 Antimicrobic Susceptibility - Final, Complete Medications Current Medications Ondansetron HCl (Zofran) 4 mg 1X ONCE IV Last administered on 08/17/18at 07:47 ; Start 08/17/18 at 07:45; Stop 08/17/18 at 07:46; Status DC Sodium Chloride 1,000 ml @ 1,000 mls/hr 1X ONCE IV Last administered on 08/17at 07:46; Start 08/17/18 at 07:45; Stop 08/17/18 at 08:44; Status DC Ceftriaxone Sodium 50 ml @ 100 mls/hr 1X ONCE IV Last administered on at 09:27; Start 08/17/18 at 08:30; Stop 08/17/18 at 08:59; Status DC Metronidazole 100 ml @ 100 mls/hr 1X ONCE IV Last administered on 08/17/18at 10:27; Start 08/17/18 at 08:30; Stop 08/17/18 at 09:29; Status DC Ondansetron HCl (Zofran) 4 mg 1X ONCE IV Last administered on 08/17/18at 10:27 ; Start 08/17/18 at 10:00; Stop 08/17/18 at 10:01; Status DC Sodium Chloride 1,000 ml @ 100 mls/hr Q10H IV Last administered on 08/18/18at 06:41; Start 08/17/18 at 10:39; Stop 08/18/18 at 10:38; Status DC Ringer's Solution 1,000 ml @ 100 mls/hr Q10H IV ; Start 08/17/18 at 16:00; Stop 08/18/18 at 01:59; Status DC Ondansetron HCl (Zofran) 4 mg PRN Q6HRS PRN IV NAUSEA/VOMITING Last administered on 08/18/18at 08:52; Start 08/17/18 at 15:00 Oxycodone HCl (Roxicodone) 5 mg PRN Q3HRS PRN PO BREAKTHROUGH PAIN Last administered on 08/18/18at 03:06; Start 08/17/18 at 15:00 Acetaminophen (Tylenol) 650 mg PRN Q6HRS PRN PO Headaches, Temp > 101.5F; Start 08/17/18 at 15:00 Heparin Sodium (Porcine) (Heparin Sodium) 5,000 unit Q8HRS SQ Last administered on 08/20/18at 06:29; Start 08/17/18 at 22:00 Insulin Glargine (Lantus) 8 units QHS SQ Last administered on 08/17/18at 21:27 ; Start 08/17/18 at 21:00; Stop 08/18/18 at 11:18; Status DC Insulin Human Lispro (HumaLOG) 0-7 UNITS TIDWMEALS SQ Last administered on at 12:51; Start 08/17/18 at 17:00 Dextrose (Dextrose 50%-Water Syringe) 12.5 gm PRN Q15MIN PRN IV SEE COMMENTS; Start 08/17/18 at 15:00 Allopurinol (Zyloprim) 100 mg DAILY PO Last administered on 08/20/18at 09:03; Start 08/17/18 at 16:00 Citalopram Hydrobromide (CeleXA) 20 mg DAILY PO Last administered on at 09:03; Start 08/18/18 at 09:00 Metoprolol Succinate (Toprol Xl) 200 mg DAILY PO Last administered on at 09:03; Start 08/17/18 at 16:00 Simvastatin (Zocor) 20 mg HS PO Last administered on 08/19/18at 21:05; Start 08/17/18 at 21:00 Labetalol HCl (Normodyne Iv Push) 10 mg PRN Q4HRS PRN IVP HYPERTENSION, SEE COMMENTS; Start 08/17/18 at 15:00 Albuterol/ Ipratropium (Duoneb) 3 ml RTQID NEB Last administered on 08/20/18at 07:14; Start 08/17/18 at 16:00 Metronidazole 100 ml @ 100 mls/hr Q8HRS IV Last administered on 08/18/18at 06: 32; Start 08/17/18 at 22:00; Stop 08/18/18 at 08:22; Status DC Albuterol Sulfate (Ventolin Neb Soln) 2.5 mg PRN Q4HRS PRN NEB SHORTNESS OF BREATH; Start 08/18/18 at 08:00 Sodium Chloride 1,000 ml @ 100 mls/hr Q10H IV Last administered on 08/19/18at 23:50; Start 08/18/18 at 08:00 Piperacillin Sod/ Tazobactam Sod 3.375 gm/Sodium Chloride 50 ml @ 100 mls/hr Q6HRS IV Last administered on 08/20/18at 06:25; Start 08/18/18 at 08:30 Linezolid/Dextrose 300 ml @ 300 mls/hr Q12HR IV Last administered on at 09:02; Start 08/18/18 at 09:00 Insulin Glargine (Lantus) 10 units QHS SQ Last administered on 08/19/18at 21:16 ; Start 08/18/18 at 21:00 Pantoprazole Sodium (Protonix) 40 mg DAILYAC PO Last administered on at 07:25; Start 08/18/18 at 12:30 Lactobacillus Rhamnosus (Culturelle) 1 cap BID PO Last administered on at 09:02; Start 08/18/18 at 21:00 Multi-Ingredient Mouthwash/Gargle (Gi Cocktail) 20 ml PRN DAILY PRN PO GI SYMPTOMS Last administered on 08/19/18at 12:52; Start 08/18/18 at 23:15; Stop 08/19/18 at 15:42; Status DC Benzonatate (Tessalon Perle) 100 mg [id number] PO Last administered on 08/20/18at 09:03; Start 08/19/18 at 09:30 Multi-Ingredient Mouthwash/Gargle (Gi Cocktail) 20 ml PRN QID PRN PO GI SYMPTOMS Last administered on 08/20/18at 09:07; Start 08/19/18 at 15:45 Active Scripts Active Reported Glyburide 5 Mg Tablet 1 Tab PO BID Metformin Hcl 500 Mg Tablet 500 Mg PO DAILY08 Allopurinol 100 Mg Tablet 1 Tab PO DAILY Lisinopril 20 Mg Tablet 1 Tab PO DAILY Lisinopril-Hctz 20-25 Mg Tab (Lisinopril/Hydrochlorothiazide) 1 Each Tablet 1 Tab PO DAILY Actos (Pioglitazone Hcl) 30 Mg Tablet 1 Tab PO DAILY Glimepiride 1 Mg Tablet 1 Tab PO DAILY Metoprolol Succinate ( Xl ) (Metoprolol Succinate) 200 Mg Tab.er.24h 1 Tab PO DAILY Escitalopram Oxalate 10 Mg Tablet 1 Tab PO DAILY Simvastatin 20 Mg Tablet 1 Tab PO QHS Vitals/I & O Vital Sign - Last 24 Hours 08/19/18 08/19/18 08/19/18 08/19/18 11:00 12:48 13:07 15:00 Temp 96.8 97.7 96.8 97.7 Pulse 67 71 65 Resp 18 20 B/P (MAP) 143/51 (81) 143/51 134/60 (84) Pulse Ox 100 99 O2 Delivery Room Air Room Air Room Air 08/19/18 08/19/18 08/19/18 08/19/18 15:36 19:00 19:41 20:00 Temp 97.9 97.9 Pulse 62 Resp 20 B/P (MAP) 134/64 (87) Pulse Ox 97 100 O2 Delivery Room Air Room Air Room Air Room Air 08/19/18 08/20/18 08/20/18 08/20/18 23:08 03:12 07:00 07:16 Temp 99.1 98.1 97.4 99.1 98.1 97.4 Pulse 66 62 69 Resp 20 20 18 B/P (MAP) 142/63 (89) 136/66 (89) 143/61 (88) Pulse Ox 97 97 96 98 O2 Delivery Room Air Room Air Room Air Room Air 08/20/18 08/20/18 08:00 09:03 Pulse 69 B/P (MAP) 143/61 O2 Delivery Room Air Intake and Output 08/19/18 08/19/18 08/20/18 15:00 23:00 07:00 Intake Total 1950 ml 530 ml Output Total 200 ml 300 ml 100 ml Balance 1750 ml 230 ml -100 ml NANO SAEZ MD Aug 20, 2018 10:58
[2018-08-20 11:00] VITALS: BP 147/69
--- NOTE | 2018-08-20 12:22 | PDOC ---
Infectious Disease Note Subjective Subjective Feeling better Less abdominal pain No further N/V ROS ROS per HPI otherwise neg Vital Sign Vital Signs Vital Signs Date Time Temp Pulse Resp B/P (MAP) Pulse Ox O2 Delivery O2 Flow Rate FiO2 08/20/18 11:54 Room Air 08/20/18 09:03 69 143/61 08/20/18 07:16 98 08/20/18 07:00 97.4 18 97.4 Physical Exam PHYSICAL EXAM GENERAL: Propped up in bed, alert, relaxed appearance HEENT: Pupils are status post cataract. Normal conjunctivae. Oral cavity, pharynx is dry, clear. NECK: Supple, no JVD. LUNGS: Clear, have a mild rhonchi on the right. HEART: S1, S2. ABDOMEN: Soft, nondistended. Decreased bowel sounds. EXTREMITIES: No clubbing, cyanosis or gross edema. SKIN: Warm to touch without signs of rash. NEUROLOGIC: Alert, responds appropriately Labs Lab Laboratory Tests Test 08/19/18 12:41 08/19/18 15:10 08/19/18 17:02 08/19/18 20:41 Glucose (Fingerstick) 171 mg/dL (70-99) 94 mg/dL (70-99) 120 mg/dL (70-99) Stool Occult Blood Negative (NEG) Test 08/20/18 04:40 08/20/18 08:02 White Blood Count 5.6 x10^3/uL (4.0-11.0) Red Blood Count 3.02 x10^6/uL (4.30-5.70) Hemoglobin 10.3 g/dL (13.0-17.5) Hematocrit 30.3 % (39.0-53.0) Mean Corpuscular Volume 100 fL (79-100) Mean Corpuscular Hemoglobin 34 pg (25-35) Mean Corpuscular Hemoglobin Concent 34 g/dL (31-37) Red Cell Distribution Width 14.2 % (11.5-14.5) Platelet Count 106 x10^3/uL (140-400) Neutrophils (%) (Auto) 63 % (31-73) Lymphocytes (%) (Auto) 27 % (24-48) Monocytes (%) (Auto) 7 % (0-9) Eosinophils (%) (Auto) 2 % (0-3) Basophils (%) (Auto) 1 % (0-3) Neutrophils # (Auto) 3.5 x10^3uL (1.8-7.7) Lymphocytes # (Auto) 1.5 x10^3/uL (1.0-4.8) Monocytes # (Auto) 0.4 x10^3/uL (0.0-1.1) Eosinophils # (Auto) 0.1 x10^3/uL (0.0-0.7) Basophils # (Auto) 0.0 x10^3/uL (0.0-0.2) Sodium Level 140 mmol/L (136-145) Potassium Level 3.6 mmol/L (3.5-5.1) Chloride Level 107 mmol/L (98-107) Carbon Dioxide Level 25 mmol/L (21-32) Anion Gap 8 (6-14) Blood Urea Nitrogen 15 mg/dL (8-26) Creatinine 1.4 mg/dL (0.7-1.3) Estimated GFR (Cockcroft-Gault) 49.0 Glucose Level 97 mg/dL (70-99) Calcium Level 7.9 mg/dL (8.5-10.1) Phosphorus Level 2.5 mg/dL (2.6-4.7) Iron Level 74 ug/dL (65-175) Total Iron Binding Capacity 170 ug/dL (250-450) Iron Saturation 44 % (15-34) Ferritin 598 ng/mL (26-388) Albumin 2.6 g/dL (3.4-5.0) Vitamin B12 Level 372 pg/mL (247-911) Glucose (Fingerstick) 92 mg/dL (70-99) Micro URINE CULTURE RES 1 Final Enterococcus faecalis Greater than 100,000 colony forming units per mL ANTIMICROBIAL SUSCEPTIBILITY Final Comment S = Susceptible; I = Intermediate; R = Resistant P = Positive; N = Negative MICS are expressed in micrograms per mL Antibiotic RSLT#1 RSLT#2 RSLT#3 RSLT#4 Ciprofloxacin S =1 Levofloxacin S =1 Nitrofurantoin S<=16 Penicillin S =4 Tetracycline S<=1 Vancomycin S =1 Objective Assessment Hematemesis - no further N/V RLQ Abd pain - some better Swallow discomfort Abnormal CT abd with distension Leukocytosis - improved ZHENG on CKD Enterococcus PCN sensitive in urine from 08/17. UA neg Plan Plan of Care Cont Zosyn and Zyvox F/u labs and cults Supportive care Attending Co-Sign The patient was seen and interviewed as well as examined at the bedside. The chart was reviewed. The case was discussed. Agree with the plan of care. change antibiotics to po augmentin NIA CRUZ APRN Aug 20, 2018 12:22 MOOK ZHOU MD Aug 20, 2018 13:45
[2018-08-20 15:00] VITALS: BP 155/64
--- NOTE | 2018-08-20 15:21 | PDOC ---
Subjective: Subjective: Pt is no longer reporting nausea and vomiting. He does admit to lower abdominal pain, as well as pain in the esophagus/mid-chest with swallowing. This does improve with GI cocktail prn. He reports his stools vary between formed and loose. He reports having 5 BM's yesterday and 2 today. Objective: Vital Signs: Vital Signs Date Time Temp Pulse Resp B/P (MAP) Pulse Ox O2 Delivery O2 Flow Rate FiO2 08/20/18 11:54 Room Air 08/20/18 11:00 97.7 64 18 147/69 (95) 96 97.7 Labs: Laboratory Tests Test 08/19/18 17:02 08/19/18 20:41 08/20/18 04:40 08/20/18 08:02 Glucose (Fingerstick) 94 mg/dL 120 mg/dL 92 mg/dL White Blood Count 5.6 x10^3/uL Red Blood Count 3.02 x10^6/uL Hemoglobin 10.3 g/dL Hematocrit 30.3 % Mean Corpuscular Volume 100 fL Mean Corpuscular Hemoglobin 34 pg Mean Corpuscular Hemoglobin Concent 34 g/dL Red Cell Distribution Width 14.2 % Platelet Count 106 x10^3/uL Neutrophils (%) (Auto) 63 % Lymphocytes (%) (Auto) 27 % Monocytes (%) (Auto) 7 % Eosinophils (%) (Auto) 2 % Basophils (%) (Auto) 1 % Neutrophils # (Auto) 3.5 x10^3uL Lymphocytes # (Auto) 1.5 x10^3/uL Monocytes # (Auto) 0.4 x10^3/uL Eosinophils # (Auto) 0.1 x10^3/uL Basophils # (Auto) 0.0 x10^3/uL Sodium Level 140 mmol/L Potassium Level 3.6 mmol/L Chloride Level 107 mmol/L Carbon Dioxide Level 25 mmol/L Anion Gap 8 Blood Urea Nitrogen 15 mg/dL Creatinine 1.4 mg/dL Estimated GFR (Cockcroft-Gault) 49.0 Glucose Level 97 mg/dL Calcium Level 7.9 mg/dL Phosphorus Level 2.5 mg/dL Iron Level 74 ug/dL Total Iron Binding Capacity 170 ug/dL Iron Saturation 44 % Ferritin 598 ng/mL Albumin 2.6 g/dL Vitamin B12 Level 372 pg/mL Test 08/20/18 11:10 Glucose (Fingerstick) 168 mg/dL Current Medications Medications (Trade) Dose Ordered Sig/Tanya Route PRN Reason Start Time Stop Time Status Last Admin Dose Admin Ondansetron HCl (Zofran) 4 mg 1X ONCE IV 08/17/18 07:45 08/17/18 07:46 DC 08/17/18 07:47 Sodium Chloride 1,000 ml @ 1,000 mls/hr 1X ONCE IV 08/17/18 07:45 08/17/18 08:44 DC 08/17/18 07:46 Ceftriaxone Sodium 50 ml @ 100 mls/hr 1X ONCE IV 08/17/18 08:30 08/17/18 08:59 DC 08/17/18 09:27 Metronidazole 100 ml @ 100 mls/hr 1X ONCE IV 08/17/18 08:30 08/17/18 09:29 DC 08/17/18 10:27 Ondansetron HCl (Zofran) 4 mg 1X ONCE IV 08/17/18 10:00 08/17/18 10:01 DC 08/17/18 10:27 Sodium Chloride 1,000 ml @ 100 mls/hr Q10H IV 08/17/18 10:39 08/18/18 10:38 DC 08/18/18 06:41 Ringer's Solution 1,000 ml @ 100 mls/hr Q10H IV 08/17/18 16:00 08/18/18 01:59 DC Ondansetron HCl (Zofran) 4 mg PRN Q6HRS PRN IV NAUSEA/VOMITING 08/17/18 15:00 08/18/18 08:52 Oxycodone HCl (Roxicodone) 5 mg PRN Q3HRS PRN PO BREAKTHROUGH PAIN 08/17/18 15:00 08/18/18 03:06 Acetaminophen (Tylenol) 650 mg PRN Q6HRS PRN PO Headaches, Temp > 101.5F 08/17/18 15:00 Heparin Sodium (Porcine) (Heparin Sodium) 5,000 unit Q8HRS SQ 08/17/18 22:00 08/20/18 14:03 Insulin Glargine (Lantus) 8 units QHS SQ 08/17/18 21:00 08/18/18 11:18 DC 08/17/18 21:27 Insulin Human Lispro (HumaLOG) 0-7 UNITS TIDWMEALS SQ 08/17/18 17:00 08/19/18 12:51 Dextrose (Dextrose 50%-Water Syringe) 12.5 gm PRN Q15MIN PRN IV SEE COMMENTS 08/17/18 15:00 Allopurinol (Zyloprim) 100 mg DAILY PO 08/17/18 16:00 08/20/18 09:03 Citalopram Hydrobromide (CeleXA) 20 mg DAILY PO 08/18/18 09:00 08/20/18 09:03 Metoprolol Succinate (Toprol Xl) 200 mg DAILY PO 08/17/18 16:00 08/20/18 09:03 Simvastatin (Zocor) 20 mg HS PO 08/17/18 21:00 08/19/18 21:05 Labetalol HCl (Normodyne Iv Push) 10 mg PRN Q4HRS PRN IVP HYPERTENSION, SEE COMMENTS 08/17/18 15:00 Albuterol/ Ipratropium (Duoneb) 3 ml RTQID NEB 08/17/18 16:00 08/20/18 11:53 Metronidazole 100 ml @ 100 mls/hr Q8HRS IV 08/17/18 22:00 08/18/18 08:22 DC 08/18/18 06:32 Albuterol Sulfate (Ventolin Neb Soln) 2.5 mg PRN Q4HRS PRN NEB SHORTNESS OF BREATH 08/18/18 08:00 Sodium Chloride 1,000 ml @ 100 mls/hr Q10H IV 08/18/18 08:00 08/19/18 23:50 Piperacillin Sod/ Tazobactam Sod 3.375 gm/Sodium Chloride 50 ml @ 100 mls/hr Q6HRS IV 08/18/18 08:30 08/20/18 13:46 DC 08/20/18 11:17 Linezolid/Dextrose 300 ml @ 300 mls/hr Q12HR IV 08/18/18 09:00 08/20/18 13:46 DC 08/20/18 09:02 Insulin Glargine (Lantus) 10 units QHS SQ 08/18/18 21:00 08/19/18 21:16 Pantoprazole Sodium (Protonix) 40 mg DAILYAC PO 08/18/18 12:30 08/20/18 07:25 Lactobacillus Rhamnosus (Culturelle) 1 cap BID PO 08/18/18 21:00 08/20/18 09:02 Multi-Ingredient Mouthwash/Gargle (Gi Cocktail) 20 ml PRN DAILY PRN PO GI SYMPTOMS 08/18/18 23:15 08/19/18 15:42 DC 08/19/18 12:52 Benzonatate (Tessalon Perle) 100 mg [id number] PO 08/19/18 09:30 08/20/18 14:00 Multi-Ingredient Mouthwash/Gargle (Gi Cocktail) 20 ml PRN QID PRN PO GI SYMPTOMS 08/19/18 15:45 08/20/18 09:07 Amoxicillin/ Clavulanate Potassium (Augmentin 875/ 125mg) 1 tab BID PO 08/20/18 21:00 Imaging: Gastric emptying study 08/19/18 IMPRESSION: Relatively rapid gastric emptying. No evidence of delayed gastric emptying. PE: GEN: NAD HEENT: Atraumatic, PERRLA LUNGS: CTAB HEART: RRR, no murmurs ABD: NABS, S/ND/NT, no masses EXTREMITY: No edema SKIN: No rashes, no jaundice NEURO/PSYCH: A & O 3 A/P: Recurrent n/v - now w/ abd pain and ?odynophagia -- Symptoms improved. GES normal. Continue PPI. Ok to take GI cocktail up to QID- as does seem to improve odynophagia. Recent 'scopes per GI consult note. COY PERALTA Aug 20, 2018 15:21
[2018-08-20] MEDS: IV NORMAL SALINE 1000ML BAG 1,000 ML IV SCH ×2 (15:24→21:02)
[2018-08-20 19:00] VITALS: BP 139/69
[2018-08-20] MEDS: AMOXICILLIN/K CLAV 875/125MG TABLET. PO SCH (21:03)
[2018-08-20] MEDS: SIMVASTATIN 20 MG TABLET PO SCH (21:03)
[2018-08-20] MEDS: INSULIN GLARGINE 300 UNITS/3 ML INSULN.PEN. SQ SCH (21:05)
[2018-08-20 23:05] VITALS: BP 150/68
[2018-08-20 23:14] LABS: HEMOGLOBIN A1C 6.8 % (4.8-5.6)
[2018-08-21 05:09] VITALS: BP 142/67
[2018-08-21] MEDS: IV NORMAL SALINE 1000ML BAG 1,000 ML IV SCH (06:24)
[2018-08-21] MEDS: HEPARIN for SUB-Q USE 5,000 UNIT/ML VIAL. SQ SCH ×3 (06:27→21:55)
[2018-08-21 06:47] LABS: BASO % 1 % (0-3); EOS # 0.2 x10^3/uL (0.0-0.7); EOS % 4 % (0-3); HEMATOCRIT 31.5 % (39.0-53.0); HEMOGLOBIN 10.5 g/dL (13.0-17.5); LYMPH # 1.3 x10^3/uL (1.0-4.8); LYMPH % 24 % (24-48); MEAN CORPUSCULAR HEMOGLOBIN 34 pg (25-35); MEAN CORPUSCULAR HGB CONC 33 g/dL (31-37); MEAN CORPUSCULAR VOLUME 100 fL (79-100); MONO # 0.4 x10^3/uL (0.0-1.1); MONO % 7 % (0-9); NEUT # 3.6 x10^3uL (1.8-7.7); NEUT % 64 % (31-73); PLATELET COUNT 103 x10^3/uL (140-400); RED BLOOD COUNT 3.13 x10^6/uL (4.30-5.70); RED CELL DISTRIBUTION WIDTH 14.3 % (11.5-14.5); WHITE BLOOD COUNT 5.6 x10^3/uL (4.0-11.0)
[2018-08-21 07:00] VITALS: BP 129/55
[2018-08-21 07:06] LABS: ALBUMIN 2.8 g/dL (3.4-5.0); CALCIUM 8.4 mg/dL (8.5-10.1); CREATININE 1.4 mg/dL (0.7-1.3); PHOSPHORUS 2.4 mg/dL (2.6-4.7); POTASSIUM 3.7 mmol/L (3.5-5.1)
[2018-08-21] MEDS: INSULIN LISPRO 300 UNITS/3 ML INSULN.PEN. SQ SCH ×3 (08:00→16:53)
[2018-08-21] MEDS: PANTOPRAZOLE 40 MG TABLET.DR. PO SCH (08:17)
[2018-08-21] MEDS: LACTOBACILLUS RHAMNOSUS GG 1 CAPSULE. PO SCH ×2 (09:00→21:15)
[2018-08-21] MEDS: AMOXICILLIN/K CLAV 875/125MG TABLET. PO SCH ×2 (09:00→21:15)
[2018-08-21] MEDS: BENZONATATE 100 MG CAPSULE. PO SCH ×3 (09:00→21:15)
[2018-08-21] MEDS: CITALOPRAM 20 MG TABLET. PO SCH (09:00)
[2018-08-21] MEDS: METOPROLOL SUCC 24HR ER 100 MG TAB.ER.24H. PO SCH (09:00)
[2018-08-21] MEDS: ALLOPURINOL 100 MG TABLET. PO SCH (09:00)
[2018-08-21] MEDS: IPRATRPIUM/ALBUTEROL 0.5/2.5MG 3 ML NEBU. NEB SCH ×4 (09:29→20:02)
[2018-08-21 11:00] VITALS: BP 131/60
--- NOTE | 2018-08-21 13:20 | PDOC ---
PROGRESS NOTES Chief Complaint Chief Complaint Intractable nausea and vomiting ,gastroenteritis Diarrhea , need to rule out cdiff Sepsis , could 2/2 gastroenteritis ARF - likely 2/2 GI losses, vasomotor CKD3 Hyperkalemia COPD Diabetes HTN GERD, esophagitis, duodenitis from recent EGD no gastroparesis plan: fu with id, changd zosyn and zyvox to augmentin as per id advance deit dc ivf increased lantus to 10u qhs, cont ssi hold po dm2 meds, hold ACEi dvt, gi ppx duoneb, albuterol prn check hb a1c GESneg check anemia panel gi cocktail prn add cough meds + ucx with enterococus, but no UTI symptom, defer to ID History of Present Illness History of Present Illness ROS: no fever, chills, or chest pain some cough and sob has N/V and diarrhea for 2-3 weeks. possible vomiting blood? WBC high 21 down to 9, Hb drop to 10 from 14, but it is same as he was dced 2 weeks ago has chest pain better with gi cocktail abd pain better ,but 3/10 no N/V, small watery diarrhea overnight , better GES neg Vitals Vitals Vital Signs Date Time Temp Pulse Resp B/P (MAP) Pulse Ox O2 Delivery O2 Flow Rate FiO2 08/21/18 12:10 100 Room Air 08/21/18 11:00 98.8 65 18 131/60 (83) 98.8 Physical Exam Physical Exam GENERAL: Propped up in bed, alert, relaxed appearance HEENT: Pupils are status post cataract. Normal conjunctivae. Oral cavity, pharynx is dry, clear. NECK: Supple, no JVD. LUNGS: Clear, have a mild rhonchi on the right. HEART: S1, S2. ABDOMEN: Soft, nondistended. Decreased bowel sounds. EXTREMITIES: No clubbing, cyanosis or gross edema. SKIN: Warm to touch without signs of rash. NEUROLOGIC: Alert, responds appropriately General: Alert, Oriented X3, Cooperative, No acute distress Heart: Regular rate, Normal S1, Normal S2 Lungs: Other (bl coarse bs) Abdomen: Other (middle abd moderaet tenderness, with mild guarding, hyperactive bowel sounds) Extremities: No clubbing, No cyanosis, No edema, Normal pulses, No tenderness/ swelling Skin: No rashes, No breakdown, No significant lesion Labs LABS Laboratory Tests Test 08/20/18 16:41 08/20/18 21:46 08/21/18 06:25 08/21/18 07:49 Glucose (Fingerstick) 110 mg/dL (70-99) 113 mg/dL (70-99) 76 mg/dL (70-99) White Blood Count 5.6 x10^3/uL (4.0-11.0) Red Blood Count 3.13 x10^6/uL (4.30-5.70) Hemoglobin 10.5 g/dL (13.0-17.5) Hematocrit 31.5 % (39.0-53.0) Mean Corpuscular Volume 100 fL (79-100) Mean Corpuscular Hemoglobin 34 pg (25-35) Mean Corpuscular Hemoglobin Concent 33 g/dL (31-37) Red Cell Distribution Width 14.3 % (11.5-14.5) Platelet Count 103 x10^3/uL (140-400) Neutrophils (%) (Auto) 64 % (31-73) Lymphocytes (%) (Auto) 24 % (24-48) Monocytes (%) (Auto) 7 % (0-9) Eosinophils (%) (Auto) 4 % (0-3) Basophils (%) (Auto) 1 % (0-3) Neutrophils # (Auto) 3.6 x10^3uL (1.8-7.7) Lymphocytes # (Auto) 1.3 x10^3/uL (1.0-4.8) Monocytes # (Auto) 0.4 x10^3/uL (0.0-1.1) Eosinophils # (Auto) 0.2 x10^3/uL (0.0-0.7) Basophils # (Auto) 0.0 x10^3/uL (0.0-0.2) Sodium Level 142 mmol/L (136-145) Potassium Level 3.7 mmol/L (3.5-5.1) Chloride Level 108 mmol/L (98-107) Carbon Dioxide Level 25 mmol/L (21-32) Anion Gap 9 (6-14) Blood Urea Nitrogen 8 mg/dL (8-26) Creatinine 1.4 mg/dL (0.7-1.3) Estimated GFR (Cockcroft-Gault) 49.0 Glucose Level 82 mg/dL (70-99) Calcium Level 8.4 mg/dL (8.5-10.1) Phosphorus Level 2.4 mg/dL (2.6-4.7) Albumin 2.8 g/dL (3.4-5.0) Test 08/21/18 11:46 Glucose (Fingerstick) 121 mg/dL (70-99) Assessment and Plan Assessmemt and Plan Problems Medical Problems: (1) Nausea vomiting and diarrhea Status: Acute (2) Renal failure (ARF), acute on chronic Status: Acute Comment Review of Relevant I have reviewed the following items citlalli (where applicable) has been applied. Labs Laboratory Tests Test 08/19/18 15:10 08/19/18 17:02 08/19/18 20:41 08/20/18 04:40 Stool Occult Blood Negative (NEG) Glucose (Fingerstick) 94 mg/dL (70-99) 120 mg/dL (70-99) White Blood Count 5.6 x10^3/uL (4.0-11.0) Red Blood Count 3.02 x10^6/uL (4.30-5.70) Hemoglobin 10.3 g/dL (13.0-17.5) Hematocrit 30.3 % (39.0-53.0) Mean Corpuscular Volume 100 fL (79-100) Mean Corpuscular Hemoglobin 34 pg (25-35) Mean Corpuscular Hemoglobin Concent 34 g/dL (31-37) Red Cell Distribution Width 14.2 % (11.5-14.5) Platelet Count 106 x10^3/uL (140-400) Neutrophils (%) (Auto) 63 % (31-73) Lymphocytes (%) (Auto) 27 % (24-48) Monocytes (%) (Auto) 7 % (0-9) Eosinophils (%) (Auto) 2 % (0-3) Basophils (%) (Auto) 1 % (0-3) Neutrophils # (Auto) 3.5 x10^3uL (1.8-7.7) Lymphocytes # (Auto) 1.5 x10^3/uL (1.0-4.8) Monocytes # (Auto) 0.4 x10^3/uL (0.0-1.1) Eosinophils # (Auto) 0.1 x10^3/uL (0.0-0.7) Basophils # (Auto) 0.0 x10^3/uL (0.0-0.2) Sodium Level 140 mmol/L (136-145) Potassium Level 3.6 mmol/L (3.5-5.1) Chloride Level 107 mmol/L (98-107) Carbon Dioxide Level 25 mmol/L (21-32) Anion Gap 8 (6-14) Blood Urea Nitrogen 15 mg/dL (8-26) Creatinine 1.4 mg/dL (0.7-1.3) Estimated GFR (Cockcroft-Gault) 49.0 Glucose Level 97 mg/dL (70-99) Calcium Level 7.9 mg/dL (8.5-10.1) Phosphorus Level 2.5 mg/dL (2.6-4.7) Iron Level 74 ug/dL (65-175) Total Iron Binding Capacity 170 ug/dL (250-450) Iron Saturation 44 % (15-34) Ferritin 598 ng/mL (26-388) Albumin 2.6 g/dL (3.4-5.0) Vitamin B12 Level 372 pg/mL (247-911) Test 08/20/18 08:02 08/20/18 11:10 08/20/18 16:41 08/20/18 21:46 Glucose (Fingerstick) 92 mg/dL (70-99) 168 mg/dL (70-99) 110 mg/dL (70-99) 113 mg/dL (70-99) Test 08/21/18 06:25 08/21/18 07:49 08/21/18 11:46 White Blood Count 5.6 x10^3/uL (4.0-11.0) Red Blood Count 3.13 x10^6/uL (4.30-5.70) Hemoglobin 10.5 g/dL (13.0-17.5) Hematocrit 31.5 % (39.0-53.0) Mean Corpuscular Volume 100 fL (79-100) Mean Corpuscular Hemoglobin 34 pg (25-35) Mean Corpuscular Hemoglobin Concent 33 g/dL (31-37) Red Cell Distribution Width 14.3 % (11.5-14.5) Platelet Count 103 x10^3/uL (140-400) Neutrophils (%) (Auto) 64 % (31-73) Lymphocytes (%) (Auto) 24 % (24-48) Monocytes (%) (Auto) 7 % (0-9) Eosinophils (%) (Auto) 4 % (0-3) Basophils (%) (Auto) 1 % (0-3) Neutrophils # (Auto) 3.6 x10^3uL (1.8-7.7) Lymphocytes # (Auto) 1.3 x10^3/uL (1.0-4.8) Monocytes # (Auto) 0.4 x10^3/uL (0.0-1.1) Eosinophils # (Auto) 0.2 x10^3/uL (0.0-0.7) Basophils # (Auto) 0.0 x10^3/uL (0.0-0.2) Sodium Level 142 mmol/L (136-145) Potassium Level 3.7 mmol/L (3.5-5.1) Chloride Level 108 mmol/L (98-107) Carbon Dioxide Level 25 mmol/L (21-32) Anion Gap 9 (6-14) Blood Urea Nitrogen 8 mg/dL (8-26) Creatinine 1.4 mg/dL (0.7-1.3) Estimated GFR (Cockcroft-Gault) 49.0 Glucose Level 82 mg/dL (70-99) Calcium Level 8.4 mg/dL (8.5-10.1) Phosphorus Level 2.4 mg/dL (2.6-4.7) Albumin 2.8 g/dL (3.4-5.0) Glucose (Fingerstick) 76 mg/dL (70-99) 121 mg/dL (70-99) Laboratory Tests Test 08/20/18 16:41 08/20/18 21:46 08/21/18 06:25 08/21/18 07:49 Glucose (Fingerstick) 110 mg/dL (70-99) 113 mg/dL (70-99) 76 mg/dL (70-99) White Blood Count 5.6 x10^3/uL (4.0-11.0) Red Blood Count 3.13 x10^6/uL (4.30-5.70) Hemoglobin 10.5 g/dL (13.0-17.5) Hematocrit 31.5 % (39.0-53.0) Mean Corpuscular Volume 100 fL (79-100) Mean Corpuscular Hemoglobin 34 pg (25-35) Mean Corpuscular Hemoglobin Concent 33 g/dL (31-37) Red Cell Distribution Width 14.3 % (11.5-14.5) Platelet Count 103 x10^3/uL (140-400) Neutrophils (%) (Auto) 64 % (31-73) Lymphocytes (%) (Auto) 24 % (24-48) Monocytes (%) (Auto) 7 % (0-9) Eosinophils (%) (Auto) 4 % (0-3) Basophils (%) (Auto) 1 % (0-3) Neutrophils # (Auto) 3.6 x10^3uL (1.8-7.7) Lymphocytes # (Auto) 1.3 x10^3/uL (1.0-4.8) Monocytes # (Auto) 0.4 x10^3/uL (0.0-1.1) Eosinophils # (Auto) 0.2 x10^3/uL (0.0-0.7) Basophils # (Auto) 0.0 x10^3/uL (0.0-0.2) Sodium Level 142 mmol/L (136-145) Potassium Level 3.7 mmol/L (3.5-5.1) Chloride Level 108 mmol/L (98-107) Carbon Dioxide Level 25 mmol/L (21-32) Anion Gap 9 (6-14) Blood Urea Nitrogen 8 mg/dL (8-26) Creatinine 1.4 mg/dL (0.7-1.3) Estimated GFR (Cockcroft-Gault) 49.0 Glucose Level 82 mg/dL (70-99) Calcium Level 8.4 mg/dL (8.5-10.1) Phosphorus Level 2.4 mg/dL (2.6-4.7) Albumin 2.8 g/dL (3.4-5.0) Test 08/21/18 11:46 Glucose (Fingerstick) 121 mg/dL (70-99) Microbiology 08/17/18 Stool Culture - Final, Resulted 08/17/18 Stool Culture Result 1 (CM) - Final, Resulted 08/17/18 Campylobacter Antigen Assay - Preliminary, Resulted 08/17/18 Campylobactor Result 1 - Preliminary, Resulted 08/17/18 Shiga Toxin Test - Final, Resulted 08/17/18 Urine Culture - Final, Complete 08/17/18 Urine Culture Result 1 (CM) - Final, Complete 08/17/18 Antimicrobic Susceptibility - Final, Complete Medications Current Medications Ondansetron HCl (Zofran) 4 mg 1X ONCE IV Last administered on 08/17/18at 07:47 ; Start 08/17/18 at 07:45; Stop 08/17/18 at 07:46; Status DC Sodium Chloride 1,000 ml @ 1,000 mls/hr 1X ONCE IV Last administered on 08/17at 07:46; Start 08/17/18 at 07:45; Stop 08/17/18 at 08:44; Status DC Ceftriaxone Sodium 50 ml @ 100 mls/hr 1X ONCE IV Last administered on at 09:27; Start 08/17/18 at 08:30; Stop 08/17/18 at 08:59; Status DC Metronidazole 100 ml @ 100 mls/hr 1X ONCE IV Last administered on 08/17/18at 10:27; Start 08/17/18 at 08:30; Stop 08/17/18 at 09:29; Status DC Ondansetron HCl (Zofran) 4 mg 1X ONCE IV Last administered on 08/17/18at 10:27 ; Start 08/17/18 at 10:00; Stop 08/17/18 at 10:01; Status DC Sodium Chloride 1,000 ml @ 100 mls/hr Q10H IV Last administered on 08/18/18at 06:41; Start 08/17/18 at 10:39; Stop 08/18/18 at 10:38; Status DC Ringer's Solution 1,000 ml @ 100 mls/hr Q10H IV ; Start 08/17/18 at 16:00; Stop 08/18/18 at 01:59; Status DC Ondansetron HCl (Zofran) 4 mg PRN Q6HRS PRN IV NAUSEA/VOMITING Last administered on 08/18/18at 08:52; Start 08/17/18 at 15:00 Oxycodone HCl (Roxicodone) 5 mg PRN Q3HRS PRN PO BREAKTHROUGH PAIN Last administered on 08/18/18at 03:06; Start 08/17/18 at 15:00 Acetaminophen (Tylenol) 650 mg PRN Q6HRS PRN PO Headaches, Temp > 101.5F; Start 08/17/18 at 15:00 Heparin Sodium (Porcine) (Heparin Sodium) 5,000 unit Q8HRS SQ Last administered on 08/21/18at 06:27; Start 08/17/18 at 22:00 Insulin Glargine (Lantus) 8 units QHS SQ Last administered on 08/17/18at 21:27 ; Start 08/17/18 at 21:00; Stop 08/18/18 at 11:18; Status DC Insulin Human Lispro (HumaLOG) 0-7 UNITS TIDWMEALS SQ Last administered on at 12:51; Start 08/17/18 at 17:00 Dextrose (Dextrose 50%-Water Syringe) 12.5 gm PRN Q15MIN PRN IV SEE COMMENTS; Start 08/17/18 at 15:00 Allopurinol (Zyloprim) 100 mg DAILY PO Last administered on 08/21/18at 09:00; Start 08/17/18 at 16:00 Citalopram Hydrobromide (CeleXA) 20 mg DAILY PO Last administered on at 09:00; Start 08/18/18 at 09:00 Metoprolol Succinate (Toprol Xl) 200 mg DAILY PO Last administered on at 09:00; Start 08/17/18 at 16:00 Simvastatin (Zocor) 20 mg HS PO Last administered on 08/20/18at 21:03; Start 08/17/18 at 21:00 Labetalol HCl (Normodyne Iv Push) 10 mg PRN Q4HRS PRN IVP HYPERTENSION, SEE COMMENTS; Start 08/17/18 at 15:00 Albuterol/ Ipratropium (Duoneb) 3 ml RTQID NEB Last administered on 08/21/18at 12:10; Start 08/17/18 at 16:00 Metronidazole 100 ml @ 100 mls/hr Q8HRS IV Last administered on 08/18/18at 06: 32; Start 08/17/18 at 22:00; Stop 08/18/18 at 08:22; Status DC Albuterol Sulfate (Ventolin Neb Soln) 2.5 mg PRN Q4HRS PRN NEB SHORTNESS OF BREATH; Start 08/18/18 at 08:00 Sodium Chloride 1,000 ml @ 100 mls/hr Q10H IV Last administered on 08/21/18at 06:24; Start 08/18/18 at 08:00; Stop 08/21/18 at 09:13; Status DC Piperacillin Sod/ Tazobactam Sod 3.375 gm/Sodium Chloride 50 ml @ 100 mls/hr Q6HRS IV Last administered on 08/20/18at 11:17; Start 08/18/18 at 08:30; Stop 08/20/18 at 13:46; Status DC Linezolid/Dextrose 300 ml @ 300 mls/hr Q12HR IV Last administered on at 09:02; Start 08/18/18 at 09:00; Stop 08/20/18 at 13:46; Status DC Insulin Glargine (Lantus) 10 units QHS SQ Last administered on 08/20/18at 21:05 ; Start 08/18/18 at 21:00 Pantoprazole Sodium (Protonix) 40 mg DAILYAC PO Last administered on at 08:17; Start 08/18/18 at 12:30 Lactobacillus Rhamnosus (Culturelle) 1 cap BID PO Last administered on at 09:00; Start 08/18/18 at 21:00 Multi-Ingredient Mouthwash/Gargle (Gi Cocktail) 20 ml PRN DAILY PRN PO GI SYMPTOMS Last administered on 08/19/18at 12:52; Start 08/18/18 at 23:15; Stop 08/19/18 at 15:42; Status DC Benzonatate (Tessalon Perle) 100 mg [id number] PO Last administered on 08/21/18at 09:00; Start 08/19/18 at 09:30 Multi-Ingredient Mouthwash/Gargle (Gi Cocktail) 20 ml PRN QID PRN PO GI SYMPTOMS Last administered on 08/20/18at 17:07; Start 08/19/18 at 15:45 Amoxicillin/ Clavulanate Potassium (Augmentin 875/ 125mg) 1 tab BID PO Last administered on 08/21/18at 09:00; Start 08/20/18 at 21:00 Active Scripts Active Reported Glyburide 5 Mg Tablet 1 Tab PO BID Metformin Hcl 500 Mg Tablet 500 Mg PO DAILY08 Allopurinol 100 Mg Tablet 1 Tab PO DAILY Lisinopril 20 Mg Tablet 1 Tab PO DAILY Lisinopril-Hctz 20-25 Mg Tab (Lisinopril/Hydrochlorothiazide) 1 Each Tablet 1 Tab PO DAILY Actos (Pioglitazone Hcl) 30 Mg Tablet 1 Tab PO DAILY Glimepiride 1 Mg Tablet 1 Tab PO DAILY Metoprolol Succinate ( Xl ) (Metoprolol Succinate) 200 Mg Tab.er.24h 1 Tab PO DAILY Escitalopram Oxalate 10 Mg Tablet 1 Tab PO DAILY Simvastatin 20 Mg Tablet 1 Tab PO QHS Vitals/I & O Vital Sign - Last 24 Hours 08/20/18 08/20/18 08/20/18 08/20/18 15:00 16:19 19:00 19:47 Temp 97.9 99.2 97.9 99.2 Pulse 60 63 Resp 18 20 B/P (MAP) 155/64 (94) 139/69 (92) Pulse Ox 98 97 O2 Delivery Room Air Room Air Room Air Room Air 08/20/18 08/20/18 08/21/18 08/21/18 20:00 23:05 05:09 07:00 Temp 99.0 98.2 98.1 99.0 98.2 98.1 Pulse 65 56 67 Resp 20 20 18 B/P (MAP) 150/68 (95) 142/67 (92) 129/55 (79) Pulse Ox 93 96 95 O2 Delivery Room Air Room Air Room Air Room Air 08/21/18 08/21/18 08/21/18 08/21/18 08:00 09:00 09:30 11:00 Temp 98.8 98.8 Pulse 67 65 Resp 18 B/P (MAP) 129/55 131/60 (83) Pulse Ox 96 O2 Delivery Room Air Room Air Room Air 08/21/18 12:10 Pulse Ox 100 O2 Delivery Room Air Intake and Output 08/20/18 08/20/18 08/21/18 15:00 23:00 07:00 Intake Total 700 ml Output Total 320 ml 100 ml Balance 380 ml -100 ml NANO SAEZ MD Aug 21, 2018 13:20
--- NOTE | 2018-08-21 13:42 | PDOC ---
Infectious Disease Note Subjective Subjective Abdominal feels little sore No further N/V No fevers ROS ROS per HPI Vital Sign Vital Signs Vital Signs Date Time Temp Pulse Resp B/P (MAP) Pulse Ox O2 Delivery O2 Flow Rate FiO2 08/21/18 12:10 100 Room Air 08/21/18 11:00 98.8 65 18 131/60 (83) 98.8 Physical Exam PHYSICAL EXAM GENERAL: Propped up in bed, alert, relaxed appearance HEENT: Oral cavity, pharynx is dry, clear. LUNGS: Clear HEART: S1, S2. ABDOMEN: Obese, soft, BS present EXTREMITIES: No clubbing, cyanosis or gross edema. SKIN: Warm to touch without signs of rash. NEUROLOGIC: Alert, responds appropriately Labs Lab Laboratory Tests Test 08/20/18 16:41 08/20/18 21:46 08/21/18 06:25 08/21/18 07:49 Glucose (Fingerstick) 110 mg/dL (70-99) 113 mg/dL (70-99) 76 mg/dL (70-99) White Blood Count 5.6 x10^3/uL (4.0-11.0) Red Blood Count 3.13 x10^6/uL (4.30-5.70) Hemoglobin 10.5 g/dL (13.0-17.5) Hematocrit 31.5 % (39.0-53.0) Mean Corpuscular Volume 100 fL (79-100) Mean Corpuscular Hemoglobin 34 pg (25-35) Mean Corpuscular Hemoglobin Concent 33 g/dL (31-37) Red Cell Distribution Width 14.3 % (11.5-14.5) Platelet Count 103 x10^3/uL (140-400) Neutrophils (%) (Auto) 64 % (31-73) Lymphocytes (%) (Auto) 24 % (24-48) Monocytes (%) (Auto) 7 % (0-9) Eosinophils (%) (Auto) 4 % (0-3) Basophils (%) (Auto) 1 % (0-3) Neutrophils # (Auto) 3.6 x10^3uL (1.8-7.7) Lymphocytes # (Auto) 1.3 x10^3/uL (1.0-4.8) Monocytes # (Auto) 0.4 x10^3/uL (0.0-1.1) Eosinophils # (Auto) 0.2 x10^3/uL (0.0-0.7) Basophils # (Auto) 0.0 x10^3/uL (0.0-0.2) Sodium Level 142 mmol/L (136-145) Potassium Level 3.7 mmol/L (3.5-5.1) Chloride Level 108 mmol/L (98-107) Carbon Dioxide Level 25 mmol/L (21-32) Anion Gap 9 (6-14) Blood Urea Nitrogen 8 mg/dL (8-26) Creatinine 1.4 mg/dL (0.7-1.3) Estimated GFR (Cockcroft-Gault) 49.0 Glucose Level 82 mg/dL (70-99) Calcium Level 8.4 mg/dL (8.5-10.1) Phosphorus Level 2.4 mg/dL (2.6-4.7) Albumin 2.8 g/dL (3.4-5.0) Test 08/21/18 11:46 Glucose (Fingerstick) 121 mg/dL (70-99) Micro URINE CULTURE RES 1 Final Enterococcus faecalis Greater than 100,000 colony forming units per mL ANTIMICROBIAL SUSCEPTIBILITY Final Comment S = Susceptible; I = Intermediate; R = Resistant P = Positive; N = Negative MICS are expressed in micrograms per mL Antibiotic RSLT#1 RSLT#2 RSLT#3 RSLT#4 Ciprofloxacin S =1 Levofloxacin S =1 Nitrofurantoin S<=16 Penicillin S =4 Tetracycline S<=1 Vancomycin S =1 Objective Assessment Hematemesis - no further N/V RLQ Abd pain - some better Swallow discomfort Abnormal CT abd with distension Leukocytosis - improved ZHENG on CKD Enterococcus PCN sensitive in urine from 08/17. UA neg Plan Plan of Care Cont Augmentin Supportive care Patient seen, examined, I agree with above. Assessment and plan was formulated with DRYWALL HANGER. NIA CRUZ APRN Aug 21, 2018 13:42 ANDREA ZHOU MD Aug 21, 2018 15:40
[2018-08-21 15:00] VITALS: BP 144/60
[2018-08-21 19:00] VITALS: BP 126/59
[2018-08-21] MEDS: SIMVASTATIN 20 MG TABLET PO SCH (21:15)
[2018-08-21] MEDS: INSULIN GLARGINE 300 UNITS/3 ML INSULN.PEN. SQ SCH (21:20)
[2018-08-21 23:00] VITALS: BP 135/55
[2018-08-22 03:00] VITALS: BP 126/59
[2018-08-22 05:48] LABS: BASO % 1 % (0-3); EOS # 0.2 x10^3/uL (0.0-0.7); EOS % 5 % (0-3); HEMATOCRIT 31.1 % (39.0-53.0); HEMOGLOBIN 10.3 g/dL (13.0-17.5); LYMPH # 1.3 x10^3/uL (1.0-4.8); LYMPH % 25 % (24-48); MEAN CORPUSCULAR HEMOGLOBIN 33 pg (25-35); MEAN CORPUSCULAR HGB CONC 33 g/dL (31-37); MEAN CORPUSCULAR VOLUME 100 fL (79-100); MONO # 0.4 x10^3/uL (0.0-1.1); MONO % 7 % (0-9); NEUT # 3.4 x10^3uL (1.8-7.7); NEUT % 63 % (31-73); PLATELET COUNT 98 x10^3/uL (140-400); RED CELL DISTRIBUTION WIDTH 14.1 % (11.5-14.5); WHITE BLOOD COUNT 5.4 x10^3/uL (4.0-11.0)
[2018-08-22] MEDS: PANTOPRAZOLE 40 MG TABLET.DR. PO SCH (05:57)
[2018-08-22 06:04] LABS: CREATININE 1.2 mg/dL (0.7-1.3); GFR 58.6; POTASSIUM 3.6 mmol/L (3.5-5.1)
[2018-08-22] MEDS: HEPARIN for SUB-Q USE 5,000 UNIT/ML VIAL. SQ SCH (06:05)
[2018-08-22 07:00] VITALS: BP 152/60
[2018-08-22] MEDS: IPRATRPIUM/ALBUTEROL 0.5/2.5MG 3 ML NEBU. NEB SCH (07:54)
[2018-08-22] MEDS: INSULIN LISPRO 300 UNITS/3 ML INSULN.PEN. SQ SCH (08:00)
[2018-08-22] MEDS: CITALOPRAM 20 MG TABLET. PO SCH (08:36)
[2018-08-22] MEDS: AMOXICILLIN/K CLAV 875/125MG TABLET. PO SCH (08:36)
[2018-08-22] MEDS: BENZONATATE 100 MG CAPSULE. PO SCH (08:37)
[2018-08-22] MEDS: ALLOPURINOL 100 MG TABLET. PO SCH (08:37)
[2018-08-22] MEDS: LACTOBACILLUS RHAMNOSUS GG 1 CAPSULE. PO SCH (08:37)
[2018-08-22 08:38] VITALS: BP 152/60
[2018-08-22] MEDS: METOPROLOL SUCC 24HR ER 100 MG TAB.ER.24H. PO SCH (08:38)
[2018-08-22] MEDS ORDERED: SUCR1TAB35 PO (10:02)
[2018-08-22] MEDS ORDERED: AMOX1TAB11 PO (10:02)
[2018-08-22] MEDS ORDERED: Pantoprazole PO (10:02)
[2018-08-22] MEDS ORDERED: SUCRALFATE 1 GM TABLET. PO SCH (11:30)
--- NOTE | 2018-08-22 12:21 | PDOC3 ---
Discharge Summary [facility] Date of Admission: Aug 17, 2018 Discharge Date: Aug 22, 2018 Admitting Diagnosis Intractable nausea and vomiting ,gastroenteritis Diarrhea , need to rule out cdiff Sepsis , could 2/2 gastroenteritis ARF - likely 2/2 GI losses, vasomotor CKD3 Hyperkalemia COPD Diabetes HTN GERD, esophagitis, duodenitis from recent EGD no gastroparesis Final Diagnosis CONSULTS gi id Brief Hospital Course Mr. Cam is a 78 old m, WITH DM2, htn, came for abd pain N/V for 2 weeks. Pt was dced 3 weeks ago for same reason. He told iD HEMAtemesis but denies to GI. EGD ,colonoscopy 1 ms ago showed some esophagitis, duodenitis. ABD CT not significant. pt improved with gi rest , cr also improved with ivf. given leukocytosis, id involved and was on abx. pt has some cough, copd, but not home copd meds. no UTI symptom, but + ucx. today pt feels better, heart burn better with gi cock tail. still small diarrhea. stool cx neg. dc home with augmentin. add protonix, sucralfate. resume home meds. dc time 35 min. GENERAL: Propped up in bed, alert, relaxed appearance HEENT: Pupils are status post cataract. Normal conjunctivae. Oral cavity, pharynx is dry, clear. NECK: Supple, no JVD. LUNGSbl mild wheezing. HEART: S1, S2. ABDOMEN: Soft, nondistended. Decreased bowel sounds. mild tenderness. EXTREMITIES: No clubbing, cyanosis or gross edema. SKIN: Warm to touch without signs of rash. NEUROLOGIC: Alert, responds appropriately Patient History: Unknown Disposition home CONDITION AT DISCHARGE: Improved, Stable Scheduled Allopurinol (Allopurinol), 1 TAB PO DAILY, (Reported) Amoxicillin/Potassium Clav (Amox Tr-K Clv 875-125 Mg Tab), 1 TAB PO BID Escitalopram Oxalate (Escitalopram Oxalate), 1 TAB PO DAILY, (Reported) Glimepiride (Glimepiride), 1 TAB PO DAILY, (Reported) Lisinopril (Lisinopril), 1 TAB PO DAILY, (Reported) Metformin Hcl (Metformin Hcl), 500 MG PO DAILY08, (Reported) Metoprolol Succinate (Metoprolol Succinate ( Xl )), 1 TAB PO DAILY, (Reported) Pioglitazone Hcl (Actos), 1 TAB PO DAILY, (Reported) Simvastatin (Simvastatin), 1 TAB PO QHS, (Reported) Sucralfate (Carafate), 1 GM PO QIDACHS [Pantoprazole], 40 MG PO DAILYAC Discontinued Medications Fluticasone/Salmeterol (Advair 250-50 Diskus), 1 PUFF IH BID, (Reported) Glyburide (Glyburide), 2 TAB PO DAILY, (Reported) Glyburide (Glyburide), 1 TAB PO BID, (Reported) Lansoprazole (Prevacid), 1 CAP PO DAILY, (Reported) Lisinopril/Hydrochlorothiazide (Lisinopril-Hctz 20-25 Mg Tab), 1 TAB PO DAILY, ( Reported) Polyethylene Glycol 3350 (Miralax), 1 PACKET PO PRN PRN for CONSTIPATION, ( Reported) Ranitidine Hcl (Zantac), 150 MG PO DAILY, (Reported) NANO SAEZ MD Aug 22, 2018 12:21
== END 2018-08-22 11:30 | disposition home or self-care (01) | DRG 871 ==
LOC: ER 07:10 → 5 NORTH 10:20
PROVIDERS: ADMIT Internal Medicine; ATTEND Internal Medicine
DX: A41.9 Sepsis, unspecified organism (principal); N17.0 Acute kidney failure with tubular necrosis; A04.72 Enterocolitis due to Clostridium difficile, not specified as recurrent; E11.22 Type 2 diabetes mellitus with diabetic chronic kidney disease; E78.00 Pure hypercholesterolemia, unspecified; E78.5 Hyperlipidemia, unspecified; E87.5 Hyperkalemia; I12.9 Hypertensive chronic kidney disease with stage 1 through stage 4 chronic kidney disease, or unspecified chronic kidney disease; J44.9 Chronic obstructive pulmonary disease, unspecified; M19.90 Unspecified osteoarthritis, unspecified site; F12.90 Cannabis use, unspecified, uncomplicated; K21.0 Gastro-esophageal reflux disease with esophagitis; K57.30 Diverticulosis of large intestine without perforation or abscess without bleeding; M10.9 Gout, unspecified; N18.3 Chronic kidney disease, stage 3 (moderate); Z82.49 Family history of ischemic heart disease and other diseases of the circulatory system; Z86.73 Personal history of transient ischemic attack (TIA), and cerebral infarction without residual deficits; Z87.11 Personal history of peptic ulcer disease; Z83.3 Family history of diabetes mellitus; Z88.8 Allergy status to other drugs, medicaments and biological substances; Z79.899 Other long term (current) drug therapy; Z90.49 Acquired absence of other specified parts of digestive tract
CPT/HCPCS: 36415; 71045; 74176; 78264; 80048; 80053; 80069; 80307; 81001; 82274; 82607; 82728; 82962; 83036; 83540; 83550; 83690; 84484; 85007; 85025; 85045; 87045; 87086; 87186; 93005; 94640; 94760; 96361; 96365; 96367; 96375; 96376; A9541; J0690; J1644; J1815; J2020; J2405; J2543; J3490; J7030; J7620; 99285-25; G0479

== ENCOUNTER → 2021-06-18 | Outpatient (CLI) | payer MEDICARE, BC ==
[2021-03-29 15:23] VITALS: BP 130/53
[~2021-06-18] MED LIST changes: +ACET325T21 PO; +ALBU2.5V8 INH; +AMLO5TAB4 PO; +AMOX1TAB11 PO; +BETH5TAB PO; +CEFP200T PO; +CIPR250T30 PO; +DOCU-148 PO; +DOXY100C3 PO; -EZET10TA18 PO; +EZET10TA20 PO; +FINA5TAB PO; +GLIM1TAB7 PO; -GLIM4TAB2 PO; +GLIM4TAB8 PO; -HYDR-2758 PO; +HYDR-2761 PO; +IPRA3AMP29 NEB; +LACT1CAP19 PO; +LANS15CA73 PO; -LANS15CA78 PO; +LINA5TAB PO; -LINA5TAB4 PO; -LISI-334 PO; +LISI10TA16 PO; -LISI10TA2 PO; +LISI1TAB20 PO; -LISI1TAB7 PO; +LISI20TA18 PO; +ONDA4TAB7 PO; +PIOG45TA40 PO; +Pantoprazole PO; +RANI-376 PO; -RANI150T21 PO; +SIMV10TA15 PO; -SIMV10TA3 PO; +SIMV20TA18 PO; -SIMV20TA3 PO; +SITA50TA PO; +SUCR1TAB35 PO; +SULF1TAB24 PO; +TAMS0.4C97 PO
--- NOTE | 2021-06-18 16:29 | RAD ---
EXAM: ULTRASOUND ABDOMEN COMPLETE CLINICAL HISTORY: Reason: ABD Pain; S/P stent / Spl. Instructions: / History: COMPARISON: None available. TECHNIQUE: Ultrasound of the upper abdomen was performed. FINDINGS: The head and body of the pancreas are unremarkable. The tail is obscured by intestinal gas.. The liver measures 15.6 centimeters in length in the right mid clavicular line. The hepatic margin i s smooth and the hepatic echogenicity is normal. There are no focal liver lesions. Flow seen within the portal veins. There has been a cholecystectomy. The common bile duct measures 0.3 cm. The spleen measures 9.5 cm. The right kidney measures 12.7 cm in bipolar length. Normal renal cortical echotexture and thickness. No focal renal lesion, hydronephrosis or shadowing renal calculus. The left kidney measures 13.2 cm in bipolar length. Normal renal cortical echotexture and thickness. No focal renal lesion, hydronephrosis or shadowing renal calculus. Visualized portions of the abdominal aorta and inferior vena cava are unremarkable. There is no free fluid in the upper abdomen. IMPRESSION: Grossly unremarkable sonographic survey of the upper abdomen. Electronically signed by: Eliezer Stone MD (06/18/2021 4:26 PM) [id number]
--- NOTE | 2021-06-18 16:52 | RAD ---
EXAM: Supine AP view of the abdomen DATE: 06/18/2021 10:26 AM INDICATION: Reason: ABDOMINAL PAIN, POST OP STENT PLACEMENT / Spl. Instructions: / History: COMPARISON: No Prior FINDINGS/IMPRESSION Stent tubing is seen in the right lower quadrant, anatomical positioning is not accurately discerned on single frontal view radiograph. Moderate to large volume colonic stool content. Prominent loops of small bowel, upper limits normal in caliber. Electronically signed by: Eliezer Stone MD (06/18/2021 4:50 PM) [id number]
== END ==
LOC: US 09:55
PROVIDERS: ATTEND Family Medicine
DX: R10.9 Unspecified abdominal pain (principal)
CPT/HCPCS: 74018; 76700